=== PATIENT | male | born 1980 | race Asian ===

== ENCOUNTER 2017-01-18 09:29 | Inpatient (IN) | payer OTHER ==
[~2017-01-18] VITALS: Ht 167.6 cm; Wt 65.9 kg
[~2017-01-18 09:29] MED LIST: APIX2.5T PO; ASPI-1093 PO; ATOR10TA84 PO; CARV25 PO; FERR-89 PO; FURO40 PO; HYDR50 PO; LABE100 PO; NIFE90TA38 PO; OMEG100019 PO
[2017-01-18] MEDS ORDERED: KDUR20 PO (09:37)
[2017-01-18] MEDS ORDERED: BUME1TAB30 PO (09:37)
[2017-01-18] MEDS ORDERED: LABETALOL HCL 5 MG/ML 20 ML VIAL IVP ONE (10:00)
[2017-01-18 10:27] LABS: ANION GAP 9 mmol/L (8-16); BASOPHILS # (AUTO) 0.02 K/uL (0.00-0.20); BASOPHILS % (AUTO) 0.5 % (0.0-2.0); CALCIUM, TOTAL 7.9 mg/dL (8.8-10.5); CARBON DIOXIDE 28 mmol/L (22-29); CHLORIDE 104 mmol/L (98-107); CREATININE 1.55 mg/dL (0.60-1.30); EOSINOPHILS # (AUTO) 0.04 K/uL (0.00-0.70); EOSINOPHILS % (AUTO) 1.17 % (1.0-6.0); GLOMERULAR FILTR. RATE CALC 52 mL/min (>60); HEMATOCRIT 45.3 % (41-53); HEMOGLOBIN 14.5 g/dL (13.5-17.5); LYMPHOCYTES # (AUTO) 0.9 K/uL (1.0-4.8); LYMPHOCYTES % (AUTO) 26.9 % (22.0-44.0); MEAN CORPUSCULAR HEMOGLOBIN 23.2 pg (26.0-34.0); MEAN CORPUSCULAR HGB CONC 31.9 G/dL (31.0-37.0); MEAN CORPUSCULAR VOLUME 73 fL (80-100); MONOCYTES # (AUTO) 0.5 K/uL (0.1-1.0); MONOCYTES % (AUTO) 13.4 % (2.0-9.0); NEUTROPHILS % (AUTO) 58.1 % (40.0-70.0); PLATELET COUNT (AUTO) 214 K/uL (150-450); POTASSIUM 3.4 mmol/L (3.5-5.1); RED BLOOD CELL COUNT(AUTO) 6.24 MIL/uL (4.50-5.90); RED CELL DISTRIBUTION WIDTH 21.2 % (11.5-14.5); SODIUM SERUM 141 mmol/L (136-145); UREA NITROGEN, BLOOD 16 mg/dL (7-18); WHITE BLOOD COUNT (AUTO) 3.4 K/uL (4.5-11.0)
[2017-01-18 10:47] LABS: B-TYPE NATRIURETIC PEPTIDE 2000 pg/mL (0-100)
[2017-01-18 10:53] LABS: ALANINE AMINOTRANSFERASE 27 U/L (12-78); ALBUMIN 2.6 g/dL (3.4-5.0); ASPARTATE AMINOTRANSFERASE 34 U/L (15-37); BILIRUBIN,TOTAL 0.6 mg/dL (0.1-1.0); CREATINE KINASE MB 3.7 ng/mL (0-5); CREATINE KINASE, TOTAL 166 U/L (39-308); TOTAL PROTEIN, SERUM 6.7 g/dL (6.4-8.2)
[2017-01-18] MEDS: NITROPRUSSIDE SODIUM 50 MG in DEXTROSE 5%-WATER 248 ML IV PRN (11:03)
[2017-01-18 11:05] LABS: RBC MORPHOLOGY COMMENT ABNORMAL RBC MORPH
[2017-01-18] MEDS ORDERED: ACETAMINOPHEN 325 MG TABLET PO PRN (11:30)
[2017-01-18] MEDS ORDERED: ZOLPIDEM TARTRATE 10 MG TABLET PO PRN (11:30)
[2017-01-18] MEDS ORDERED: FUROSEMIDE 40 MG/4 ML VIAL IVP ONE (11:30)
[2017-01-18 13:40] LABS: APPEARANCE,URINE CLOUDY (CLEAR); GLUCOSE, URINE (UA) NEGATIVE (NEGATIVE); KETONES,URINE NEGATIVE (NEGATIVE); LEUKOCYTE ESTERASE ,URINE NEGATIVE (NEGATIVE); OCCULT BLOOD,URINE NEGATIVE (NEGATIVE); PROTEIN,URINE SEE CONFIRM (NEGATIVE)
[2017-01-18 13:50] LABS: ADD UA MICROSCOPIC YES
[2017-01-18 13:51] LABS: SULFOSALICYLIC ACID,URINE 2+ (Negative)
[2017-01-18] MEDS: APIXABAN 2.5 MG TABLET PO SCH ×2 (13:51→20:34)
[2017-01-18 13:52] LABS: RBC,URINE None Seen /HPF (0-2); SQUAMOUS EPITHELIAL CELL,UR Few /LPF (None Seen); WBC,URINE None Seen /HPF (0-5)
[2017-01-18] MEDS: NIFEdipine 90 MG ER TABLET PO SCH (14:35)
[2017-01-18] MEDS: HydrALAZINE HCL 50 MG TABLET PO SCH ×4 (14:39→21:32)
[2017-01-18] MEDS: LABETALOL HCL 100 MG TABLET PO SCH ×2 (15:48→20:34)
[2017-01-18] MEDS: FERROUS SULFATE 325 MG EC TABLET PO SCH (16:37)
[2017-01-18] MEDS: HEPARIN SODIUM,PORCINE 5,000 UNITS/ML VIAL SQ SCH (16:38)
[2017-01-18 21:20] VITALS: BP 172/97
[2017-01-19] VITALS: BP 134/75
[2017-01-19] MEDS ORDERED: -PHARMACY VACCINE NOTE- MISC ONE ×2 (00:15)
[2017-01-19] MEDS ORDERED: INFLUENZA VIRUS VACCINE QVS 2016-17 (3YR+)/PF 60 MCG/0.5 ML SYRINGE IM ONE (00:15)
[2017-01-19] MEDS: HEPARIN SODIUM,PORCINE 5,000 UNITS/ML VIAL SQ SCH ×4 (01:01→23:49)
[2017-01-19] MEDS: NITROPRUSSIDE SODIUM 50 MG in DEXTROSE 5%-WATER 248 ML IV PRN ×2 (01:03→10:24)
[2017-01-19 04:00] VITALS: BP 171/89
[2017-01-19 05:36] LABS: HEMATOCRIT 45.1 % (41-53); HEMOGLOBIN 14.5 g/dL (13.5-17.5); MEAN CORPUSCULAR HEMOGLOBIN 23.3 pg (26.0-34.0); MEAN CORPUSCULAR VOLUME 73 fL (80-100); PLATELET COUNT (AUTO) 222 K/uL (150-450); RED CELL DISTRIBUTION WIDTH 21.6 % (11.5-14.5)
[2017-01-19 05:50] LABS: ALBUMIN 2.6 g/dL (3.4-5.0); BILIRUBIN,TOTAL 0.5 mg/dL (0.1-1.0); CALCIUM, TOTAL 8.2 mg/dL (8.8-10.5); CREATININE 1.69 mg/dL (0.60-1.30); POTASSIUM 3.4 mmol/L (3.5-5.1); TOTAL PROTEIN, SERUM 6.5 g/dL (6.4-8.2)
[2017-01-19 08:00] VITALS: BP 170/97
[2017-01-19] MEDS: NIFEdipine 90 MG ER TABLET PO SCH (10:25)
[2017-01-19] MEDS: HydrALAZINE HCL 50 MG TABLET PO SCH ×4 (10:25→21:07)
[2017-01-19] MEDS: PANTOPRAZOLE SODIUM 40 MG DR TABLET PO SCH (10:25)
[2017-01-19] MEDS: FERROUS SULFATE 325 MG EC TABLET PO SCH ×2 (10:25→17:40)
[2017-01-19] MEDS: APIXABAN 2.5 MG TABLET PO SCH ×2 (10:26→21:06)
[2017-01-19] MEDS: ATORVASTATIN CALCIUM 10 MG TABLET PO SCH (10:26)
[2017-01-19] MEDS: POTASSIUM CHLORIDE 20 MEQ ER TABLET PO SCH (10:26)
[2017-01-19] MEDS: LABETALOL HCL 100 MG TABLET PO SCH ×3 (10:27→21:06)
[2017-01-19 10:44] LABS: BAND NEUTROPHILS % (MANUAL) 12 % (1-5); LYMPHOCYTES % (MANUAL) 37 % (22-44); TOTAL CELLS COUNTED 100
[2017-01-19 10:45] LABS: RBC MORPHOLOGY COMMENT ABNORMAL RBC MORPH
[2017-01-19 12:00] VITALS: BP 137/96
[2017-01-19] MEDS: BUMETANIDE 0.25 MG/ML 10 ML VIAL IVP SCH ×2 (12:26→21:06)
[2017-01-19] MEDS: HydrALAZINE HCL 20 MG/ML VIAL IVP PRN ×3 (14:00→23:49)
[2017-01-19 15:38] VITALS: BP 193/110
[2017-01-19] MEDS: OxyCODONE HCL/ACETAMINOPHEN 5-325 MG TABLET PO PRN (15:38)
[2017-01-19 16:00] VITALS: BP 186/115
[2017-01-20] VITALS: BP 153/88
[2017-01-20] MEDS: HydrALAZINE HCL 20 MG/ML VIAL IVP PRN ×2 (03:48→11:59)
[2017-01-20 04:00] VITALS: BP 198/119
[2017-01-20 05:22] LABS: HEMATOCRIT 46.5 % (41-53); MEAN CORPUSCULAR HEMOGLOBIN 23.2 pg (26.0-34.0); MEAN CORPUSCULAR HGB CONC 32.2 G/dL (31.0-37.0); MEAN CORPUSCULAR VOLUME 72 fL (80-100); PLATELET COUNT (AUTO) 222 K/uL (150-450); RED BLOOD CELL COUNT(AUTO) 6.45 MIL/uL (4.50-5.90); RED CELL DISTRIBUTION WIDTH 21.9 % (11.5-14.5); WHITE BLOOD COUNT (AUTO) 4.2 K/uL (4.5-11.0)
[2017-01-20 05:35] LABS: ALBUMIN 2.8 g/dL (3.4-5.0); BILIRUBIN,TOTAL 0.5 mg/dL (0.1-1.0); CALCIUM, TOTAL 8.7 mg/dL (8.8-10.5); CREATININE 1.54 mg/dL (0.60-1.30); POTASSIUM 3.4 mmol/L (3.5-5.1); TOTAL PROTEIN, SERUM 6.8 g/dL (6.4-8.2)
[2017-01-20] MEDS: NITROPRUSSIDE SODIUM 50 MG in DEXTROSE 5%-WATER 248 ML IV PRN (05:45)
[2017-01-20] MEDS ORDERED: POTASSIUM CHL 10 MEQ/WATER 50 ML IV PRN (06:00)
[2017-01-20] MEDS ORDERED: POTASSIUM CHLORIDE 20 MEQ ER TABLET PO PRN (06:00)
[2017-01-20] MEDS: OxyCODONE HCL/ACETAMINOPHEN 5-325 MG TABLET PO PRN (07:01)
[2017-01-20 07:35] LABS: BAND NEUTROPHILS % (MANUAL) 17 % (1-5); LYMPHOCYTES % (MANUAL) 21 % (22-44); RBC MORPHOLOGY COMMENT ABNORMAL RBC MORPH; TOTAL CELLS COUNTED 100
[2017-01-20 08:00] VITALS: BP 152/94
[2017-01-20] MEDS: NIFEdipine 90 MG ER TABLET PO SCH (08:40)
[2017-01-20] MEDS: HEPARIN SODIUM,PORCINE 5,000 UNITS/ML VIAL SQ SCH ×2 (08:40→16:53)
[2017-01-20] MEDS: FERROUS SULFATE 325 MG EC TABLET PO SCH ×2 (08:40→16:53)
[2017-01-20] MEDS: HydrALAZINE HCL 50 MG TABLET PO SCH ×4 (08:40→22:01)
[2017-01-20] MEDS: ATORVASTATIN CALCIUM 10 MG TABLET PO SCH (08:40)
[2017-01-20] MEDS: APIXABAN 2.5 MG TABLET PO SCH ×2 (08:40→22:01)
[2017-01-20] MEDS: LABETALOL HCL 100 MG TABLET PO SCH ×3 (08:40→22:01)
[2017-01-20] MEDS: BUMETANIDE 0.25 MG/ML 10 ML VIAL IVP SCH ×2 (08:41→22:43)
[2017-01-20] MEDS: POTASSIUM CHLORIDE 20 MEQ ER TABLET PO SCH (08:41)
[2017-01-20] MEDS: PANTOPRAZOLE SODIUM 40 MG DR TABLET PO SCH (11:58)
[2017-01-20 12:00] VITALS: BP 174/113
[2017-01-20 16:00] VITALS: BP 165/92
[2017-01-20 22:00] VITALS: BP 162/103
[2017-01-20] MEDS: DOCUSATE SODIUM 100 MG CAPSULE PO SCH (22:01)
[2017-01-21] VITALS (7 sets, daily range): BP systolic 157–199; BP diastolic 100–113
[2017-01-21] MEDS: HEPARIN SODIUM,PORCINE 5,000 UNITS/ML VIAL SQ SCH ×3 (00:09→16:17)
[2017-01-21] MEDS: HydrALAZINE HCL 20 MG/ML VIAL IVP PRN ×2 (03:31→11:27)
[2017-01-21 07:04] LABS: EOSINOPHILS % (AUTO) 2.27 % (1.0-6.0); HEMOGLOBIN 14.7 g/dL (13.5-17.5); LYMPHOCYTES # (AUTO) 1.2 K/uL (1.0-4.8); LYMPHOCYTES % (AUTO) 28.2 % (22.0-44.0); MEAN CORPUSCULAR HGB CONC 31.3 G/dL (31.0-37.0); MEAN CORPUSCULAR VOLUME 73 fL (80-100); MONOCYTES # (AUTO) 0.4 K/uL (0.1-1.0); MONOCYTES % (AUTO) 10.2 % (2.0-9.0); NEUTROPHILS # (AUTO) 2.5 K/uL (1.8-7.7); NEUTROPHILS % (AUTO) 59.3 % (40.0-70.0); PLATELET COUNT (AUTO) 234 K/uL (150-450); RED CELL DISTRIBUTION WIDTH 21.7 % (11.5-14.5); WHITE BLOOD COUNT (AUTO) 4.2 K/uL (4.5-11.0)
[2017-01-21 07:50] LABS: ALBUMIN 2.8 g/dL (3.4-5.0); BILIRUBIN,TOTAL 0.6 mg/dL (0.1-1.0); CALCIUM, TOTAL 8.6 mg/dL (8.8-10.5); CREATININE 1.43 mg/dL (0.60-1.30); POTASSIUM 3.8 mmol/L (3.5-5.1); TOTAL PROTEIN, SERUM 6.8 g/dL (6.4-8.2)
[2017-01-21] MEDS: LABETALOL HCL 200 MG TABLET PO SCH ×3 (08:12→20:59)
[2017-01-21] MEDS: ATORVASTATIN CALCIUM 10 MG TABLET PO SCH (08:13)
[2017-01-21] MEDS: FERROUS SULFATE 325 MG EC TABLET PO SCH ×2 (08:14→18:00)
[2017-01-21] MEDS: APIXABAN 2.5 MG TABLET PO SCH ×2 (08:14→20:59)
[2017-01-21] MEDS: NIFEdipine 90 MG ER TABLET PO SCH (08:17)
[2017-01-21] MEDS: BUMETANIDE 0.25 MG/ML 10 ML VIAL IVP SCH ×2 (08:17→20:58)
[2017-01-21] MEDS: POTASSIUM CHLORIDE 20 MEQ ER TABLET PO SCH (08:18)
[2017-01-21] MEDS: DOCUSATE SODIUM 100 MG CAPSULE PO SCH ×2 (08:18→20:59)
[2017-01-21] MEDS: PANTOPRAZOLE SODIUM 40 MG DR TABLET PO SCH (08:19)
[2017-01-21] MEDS: HydrALAZINE HCL 50 MG TABLET PO SCH ×4 (08:50→20:59)
[2017-01-22] VITALS: BP 157/105
[2017-01-22] MEDS: HEPARIN SODIUM,PORCINE 5,000 UNITS/ML VIAL SQ SCH ×2 (00:20→08:18)
[2017-01-22 04:21] VITALS: BP 162/109
[2017-01-22 07:24] VITALS: BP 174/130
[2017-01-22 07:41] LABS: BASOPHILS # (AUTO) 0.03 K/uL (0.00-0.20); BASOPHILS % (AUTO) 0.6 % (0.0-2.0); EOSINOPHILS # (AUTO) 0.15 K/uL (0.00-0.70); EOSINOPHILS % (AUTO) 3.35 % (1.0-6.0); HEMATOCRIT 46.2 % (41-53); HEMOGLOBIN 14.3 g/dL (13.5-17.5); LYMPHOCYTES # (AUTO) 1.2 K/uL (1.0-4.8); LYMPHOCYTES % (AUTO) 26.5 % (22.0-44.0); MEAN CORPUSCULAR HEMOGLOBIN 22.6 pg (26.0-34.0); MEAN CORPUSCULAR VOLUME 73 fL (80-100); MONOCYTES # (AUTO) 0.4 K/uL (0.1-1.0); NEUTROPHILS # (AUTO) 2.7 K/uL (1.8-7.7); NEUTROPHILS % (AUTO) 60.6 % (40.0-70.0); PLATELET COUNT (AUTO) 238 K/uL (150-450); RED BLOOD CELL COUNT(AUTO) 6.33 MIL/uL (4.50-5.90); RED CELL DISTRIBUTION WIDTH 21.5 % (11.5-14.5); WHITE BLOOD COUNT (AUTO) 4.4 K/uL (4.5-11.0)
[2017-01-22 07:52] LABS: RBC MORPHOLOGY COMMENT ABNORMAL RBC MORPH
[2017-01-22 08:01] LABS: ALBUMIN 2.8 g/dL (3.4-5.0); BILIRUBIN,TOTAL 0.6 mg/dL (0.1-1.0); CALCIUM, TOTAL 8.6 mg/dL (8.8-10.5); CREATININE 1.44 mg/dL (0.60-1.30); MAGNESIUM 2.2 mg/dL (1.80-2.40); POTASSIUM 3.7 mmol/L (3.5-5.1); TOTAL PROTEIN, SERUM 6.7 g/dL (6.4-8.2)
[2017-01-22] MEDS: ATORVASTATIN CALCIUM 10 MG TABLET PO SCH (08:18)
[2017-01-22] MEDS: POTASSIUM CHLORIDE 20 MEQ ER TABLET PO SCH (08:18)
[2017-01-22] MEDS: BUMETANIDE 0.25 MG/ML 10 ML VIAL IVP SCH (08:18)
[2017-01-22] MEDS: HydrALAZINE HCL 50 MG TABLET PO SCH ×2 (08:18→12:05)
[2017-01-22] MEDS: NIFEdipine 90 MG ER TABLET PO SCH (08:18)
[2017-01-22] MEDS: LABETALOL HCL 200 MG TABLET PO SCH (08:18)
[2017-01-22] MEDS: DOCUSATE SODIUM 100 MG CAPSULE PO SCH (08:18)
[2017-01-22] MEDS: FERROUS SULFATE 325 MG EC TABLET PO SCH (08:18)
[2017-01-22] MEDS: PANTOPRAZOLE SODIUM 40 MG DR TABLET PO SCH (08:18)
[2017-01-22] MEDS: APIXABAN 2.5 MG TABLET PO SCH (08:19)
[2017-01-22 11:23] VITALS: BP 172/123
[2017-01-22] MEDS ORDERED: LABETALOL HCL 200 MG TABLET PO ONE (13:00)
[2017-01-22 14:22] VITALS: BP 130/95
[2017-01-22 15:17] VITALS: BP 139/87
[2017-01-22] MEDS ORDERED: LABETALOL HCL 200 MG TABLET PO SCH (16:00)
== END 2017-01-22 16:08 | disposition home or self-care (01) | DRG 194 ==
LOC: EMS 09:36 → ICUN 19:56 → 5N 01-20 17:55
PROVIDERS: ADMIT Hospitalist; ATTEND Hospitalist
DX: I11.0 Hypertensive heart disease with heart failure (principal); E43 Unspecified severe protein-calorie malnutrition; G93.41 Metabolic encephalopathy; I48.92 Unspecified atrial flutter; I42.8 Other cardiomyopathies; Z79.01 Long term (current) use of anticoagulants; I48.91 Unspecified atrial fibrillation; I20.0 Unstable angina; I50.23 Acute on chronic systolic (congestive) heart failure; E87.1 Hypo-osmolality and hyponatremia; E87.6 Hypokalemia; N28.9 Disorder of kidney and ureter, unspecified; I35.1 Nonrheumatic aortic (valve) insufficiency; Z68.23 Body mass index [BMI] 23.0-23.9, adult; Z79.899 Other long term (current) drug therapy; Z91.19 Patient's noncompliance with other medical treatment and regimen; Z71.51 Drug abuse counseling and surveillance of drug abuser; Z28.21 Immunization not carried out because of patient refusal
CPT/HCPCS: 76700; 83735; 84132; 87081; 90471; 93005; 93306; 96374; 96375; 99291; J0360; J1644; J1940; J3490; J7060

== ENCOUNTER 2017-10-03 18:17 | Inpatient (IN) | payer OTHER ==
[~2017-10-03] VITALS: Ht 167.6 cm; Wt 75.1 kg
[~2017-10-03 18:17] MED LIST changes: -ASPI-1093 PO; +BUME1TAB17 PO; -CARV25 PO; -FURO40 PO; +HYDR-2924 PO; -HYDR50 PO; +KDUR20 PO; +OMEG-135 PO; -OMEG100019 PO
[2017-10-03] MEDS ORDERED: KDUR20 PO (18:30)
[2017-10-03] MEDS ORDERED: ATOR10TA84 PO (18:30)
[2017-10-03] MEDS ORDERED: APIX2.5T PO (18:30)
[2017-10-03] MEDS ORDERED: BUME1TAB17 PO (18:30)
[2017-10-03] MEDS ORDERED: HYDR-2924 PO (18:30)
[2017-10-03] MEDS ORDERED: FERR-89 PO (18:30)
[2017-10-03] MEDS ORDERED: LABE100 PO (18:30)
[2017-10-03] MEDS ORDERED: NIFE90TA38 PO (18:30)
[2017-10-03] MEDS ORDERED: OMEG-135 PO (18:30)
[2017-10-03] MEDS ORDERED: LORazepam 2 MG TABLET PO ONE (19:15)
[2017-10-03] MEDS ORDERED: CloNIDine HCL 0.1 MG TABLET PO ONE (19:15)
[2017-10-03] MEDS ORDERED: MORPHINE SULFATE 4 MG/ML SYRINGE IVP ONE (19:30)
[2017-10-03 19:37] LABS: BASOPHILS % (AUTO) 0.4 % (0.0-2.0); EOSINOPHILS % (AUTO) 5.6 % (1.0-6.0); HEMATOCRIT 40.7 % (41-53); HEMOGLOBIN 13.3 g/dL (13.5-17.5); LYMPHOCYTES # (AUTO) 0.8 K/uL (1.0-4.8); MEAN CORPUSCULAR HEMOGLOBIN 25.4 pg (26.0-34.0); MEAN CORPUSCULAR HGB CONC 32.7 G/dL (31.0-37.0); MEAN CORPUSCULAR VOLUME 78 fL (80-100); MONOCYTES # (AUTO) 0.9 K/uL (0.1-1.0); MONOCYTES % (AUTO) 11.2 % (2.0-9.0); NEUTROPHILS # (AUTO) 5.5 K/uL (1.8-7.7); NEUTROPHILS % (AUTO) 71.8 % (40.0-70.0); PLATELET COUNT (AUTO) 278 K/uL (150-450); RED BLOOD CELL COUNT(AUTO) 5.24 MIL/uL (4.50-5.90); RED CELL DISTRIBUTION WIDTH 16.1 % (11.5-14.5); WHITE BLOOD COUNT (AUTO) 7.6 K/uL (4.5-11.0)
[2017-10-03 19:39] LABS: APPEARANCE,URINE CLOUDY (CLEAR); GLUCOSE, URINE (UA) NEGATIVE (NEGATIVE); KETONES,URINE NEGATIVE (NEGATIVE); LEUKOCYTE ESTERASE ,URINE NEGATIVE (NEGATIVE); OCCULT BLOOD,URINE MODERATE (NEGATIVE); PH,URINE 5.5 (5.0-8.0); PROTEIN,URINE SEE CONFIRM (NEGATIVE)
[2017-10-03 19:40] LABS: ADD UA MICROSCOPIC YES
[2017-10-03 19:46] LABS: SULFOSALICYLIC ACID,URINE 4+ (Negative)
[2017-10-03 19:50] LABS: WBC,URINE 0-2 /HPF (0-5)
[2017-10-03 19:52] LABS: ANION GAP 4 mmol/L (8-16); CALCIUM, TOTAL 8.2 mg/dL (8.8-10.5); CARBON DIOXIDE 30 mmol/L (22-29); CHLORIDE 99 mmol/L (98-107); CREATININE 2.13 mg/dL (0.60-1.30); GLOMERULAR FILTR. RATE CALC 36 mL/min (>60); POTASSIUM 3.2 mmol/L (3.5-5.1); SODIUM SERUM 133 mmol/L (136-145); UREA NITROGEN, BLOOD 36 mg/dL (7-18)
[2017-10-03 19:52] LABS: AMORPHOUS SEDIMENT,UR Few /LPF (None Seen); COARSE GRANULAR CASTS,URINE 0-2 /LPF (None Seen); FINE GRANULAR CASTS,URINE 0-2 /LPF (None Seen); SQUAMOUS EPITHELIAL CELL,UR Few /LPF (None Seen)
[2017-10-03 19:53] LABS: INR 1.1 (0.9-1.1); PROTHROMBIN TIME 11.8 SEC (9.4-11.6)
[2017-10-03] MEDS ORDERED: LABETALOL HCL 5 MG/ML 20 ML VIAL IVP ONE ×2 (20:00→23:30)
[2017-10-03] MEDS ORDERED: NITROGLYCERIN 2% (1 GM=INCH) PACKET TP ONE (20:00)
[2017-10-03] MEDS ORDERED: ASPIRIN 81 MG CHEWABLE TABLET PO ONE (20:00)
[2017-10-03] MEDS ORDERED: POTASSIUM CHLORIDE 20 MEQ ER TABLET PO ONE (20:00)
[2017-10-03 20:02] LABS: B-TYPE NATRIURETIC PEPTIDE 2020 pg/mL (0-100)
[2017-10-03 20:03] LABS: RBC MORPHOLOGY COMMENT ABNORMAL RBC MORPH
[2017-10-03 20:17] LABS: ALANINE AMINOTRANSFERASE 29 U/L (12-78); ALBUMIN 2.8 g/dL (3.4-5.0); ASPARTATE AMINOTRANSFERASE 26 U/L (15-37); BILIRUBIN,TOTAL 0.5 mg/dL (0.1-1.0); CREATINE KINASE MB 4.8 ng/mL (0-5); CREATINE KINASE, TOTAL 281 U/L (39-308); TOTAL PROTEIN, SERUM 6.3 g/dL (6.4-8.2)
[2017-10-03] MEDS ORDERED: ACETAMINOPHEN 325 MG TABLET PO PRN ×2 (20:30→22:00)
[2017-10-03] MEDS ORDERED: ONDANSETRON HCL 4 MG/2 ML VIAL IVP PRN (20:30)
[2017-10-03] MEDS ORDERED: 0.9% SODIUM CHLORIDE 10 ML SYRINGE IVP PRN (20:30)
[2017-10-03] MEDS ORDERED: BISACODYL 10 MG RECTAL RECTAL SUPPOSITORY PR PRN (22:00)
[2017-10-03] MEDS ORDERED: HydrALAZINE HCL 20 MG/ML VIAL IVP ONE (22:15)
[2017-10-03] MEDS: BUMETANIDE 0.25 MG/ML 4 ML VIAL IVP SCH (22:18)
[2017-10-04] VITALS (7 sets, daily range): BP systolic 111–197; BP diastolic 72–141
[2017-10-04] MEDS ORDERED: LABETALOL HCL 5 MG/ML 20 ML VIAL IVP ONE
[2017-10-04] MEDS ORDERED: NITROGLYCERIN 50 MG/D5% WATER 250 ML IV PRN (00:44)
[2017-10-04] MEDS: CloNIDine HCL 0.1 MG TABLET PO PRN ×2 (03:13→06:16)
[2017-10-04 05:11] LABS: BASOPHILS # (AUTO) 0.07 K/uL (0.00-0.20); BASOPHILS % (AUTO) 0.9 % (0.0-2.0); EOSINOPHILS # (AUTO) 0.39 K/uL (0.00-0.70); EOSINOPHILS % (AUTO) 5.08 % (1.0-6.0); HEMATOCRIT 40.5 % (41-53); HEMOGLOBIN 12.9 g/dL (13.5-17.5); LYMPHOCYTES # (AUTO) 0.9 K/uL (1.0-4.8); LYMPHOCYTES % (AUTO) 11.4 % (22.0-44.0); MEAN CORPUSCULAR HEMOGLOBIN 25.2 pg (26.0-34.0); MEAN CORPUSCULAR HGB CONC 31.9 G/dL (31.0-37.0); MEAN CORPUSCULAR VOLUME 79 fL (80-100); MONOCYTES % (AUTO) 12.3 % (2.0-9.0); NEUTROPHILS # (AUTO) 5.5 K/uL (1.8-7.7); NEUTROPHILS % (AUTO) 70.4 % (40.0-70.0); PLATELET COUNT (AUTO) 274 K/uL (150-450); RED BLOOD CELL COUNT(AUTO) 5.13 MIL/uL (4.50-5.90); RED CELL DISTRIBUTION WIDTH 15.6 % (11.5-14.5); WHITE BLOOD COUNT (AUTO) 7.7 K/uL (4.5-11.0)
[2017-10-04 06:05] LABS: CALCIUM, TOTAL 8.4 mg/dL (8.8-10.5); CREATININE 1.69 mg/dL (0.60-1.30); POTASSIUM 3.6 mmol/L (3.5-5.1)
[2017-10-04] MEDS ORDERED: AmLODIPine BESYLATE 10 MG TABLET PO ONE (06:30)
[2017-10-04] MEDS: OxyCODONE HCL/ACETAMINOPHEN 5-325 MG TABLET PO PRN ×4 (06:31→23:29)
[2017-10-04] MEDS ORDERED: CefTRIAXone 1 GM/DEXTROSE 50 ML IV SCH (07:30)
[2017-10-04] MEDS ORDERED: HydrALAZINE HCL 20 MG/ML VIAL IVP PRN ×2 (08:00→08:30)
[2017-10-04] MEDS ORDERED: HydrALAZINE HCL 20 MG/ML VIAL IVP SCH (08:00)
[2017-10-04] MEDS ORDERED: LABETALOL HCL 5 MG/ML 20 ML VIAL IVP SCH (08:00)
[2017-10-04] MEDS ORDERED: LABETALOL HCL 5 MG/ML 20 ML VIAL IVP PRN ×3 (08:00→21:00)
[2017-10-04] MEDS: BUMETANIDE 0.25 MG/ML 4 ML VIAL IVP SCH ×2 (08:26→20:45)
[2017-10-04] MEDS: PANTOPRAZOLE SODIUM 40 MG DR TABLET PO SCH (08:28)
[2017-10-04] MEDS: DOCUSATE SODIUM 100 MG CAPSULE PO SCH ×2 (08:28→20:45)
[2017-10-04] MEDS: AmLODIPine BESYLATE 10 MG TABLET PO SCH (08:28)
[2017-10-04] MEDS ORDERED: SODIUM CHLORIDE 0.9% 250 ML IV ONE (08:33)
[2017-10-04] MEDS: LABETALOL HCL 100 MG TABLET PO SCH ×3 (09:21→20:45)
[2017-10-04] MEDS: ASPIRIN 81 MG CHEWABLE TABLET PO SCH (20:45)
[2017-10-04] MEDS: HydrALAZINE HCL 25 MG TABLET PO SCH (23:29)
[2017-10-05] VITALS (10 sets, daily range): BP systolic 153–200; BP diastolic 86–116
[2017-10-05] MEDS: OxyCODONE HCL/ACETAMINOPHEN 5-325 MG TABLET PO PRN ×5 (04:52→22:52)
[2017-10-05 06:36] LABS: BASOPHILS % (AUTO) 0.6 % (0.0-2.0); EOSINOPHILS % (AUTO) 4.9 % (1.0-6.0); HEMATOCRIT 41.4 % (41-53); HEMOGLOBIN 13.4 g/dL (13.5-17.5); MEAN CORPUSCULAR HEMOGLOBIN 25.5 pg (26.0-34.0); MEAN CORPUSCULAR HGB CONC 32.4 G/dL (31.0-37.0); MEAN CORPUSCULAR VOLUME 79 fL (80-100); MONOCYTES # (AUTO) 0.8 K/uL (0.1-1.0); MONOCYTES % (AUTO) 11.7 % (2.0-9.0); NEUTROPHILS # (AUTO) 4.7 K/uL (1.8-7.7); NEUTROPHILS % (AUTO) 67.8 % (40.0-70.0); PLATELET COUNT (AUTO) 276 K/uL (150-450); RED BLOOD CELL COUNT(AUTO) 5.26 MIL/uL (4.50-5.90); RED CELL DISTRIBUTION WIDTH 16.2 % (11.5-14.5); WHITE BLOOD COUNT (AUTO) 6.9 K/uL (4.5-11.0)
[2017-10-05 06:46] LABS: ALBUMIN 2.5 g/dL (3.4-5.0); BILIRUBIN,TOTAL 0.7 mg/dL (0.1-1.0); CALCIUM, TOTAL 8.3 mg/dL (8.8-10.5); CREATININE 1.72 mg/dL (0.60-1.30); MAGNESIUM 1.9 mg/dL (1.80-2.40); POTASSIUM 3.9 mmol/L (3.5-5.1)
[2017-10-05] MEDS: LABETALOL HCL 100 MG TABLET PO SCH ×3 (08:17→22:51)
[2017-10-05] MEDS: HydrALAZINE HCL 25 MG TABLET PO SCH ×2 (08:17→17:58)
[2017-10-05] MEDS: DOCUSATE SODIUM 100 MG CAPSULE PO SCH ×2 (08:17→20:28)
[2017-10-05] MEDS: PANTOPRAZOLE SODIUM 40 MG DR TABLET PO SCH (08:17)
[2017-10-05] MEDS: BUMETANIDE 0.25 MG/ML 4 ML VIAL IVP SCH ×2 (08:18→20:32)
[2017-10-05] MEDS: AmLODIPine BESYLATE 10 MG TABLET PO SCH ×3 (08:18→20:29)
[2017-10-05] MEDS ORDERED: AmLODIPine BESYLATE 10 MG TABLET PO SCH (09:00)
[2017-10-05] MEDS: CloNIDine HCL 0.1 MG TABLET PO PRN (11:38)
[2017-10-05] MEDS: ASPIRIN 81 MG CHEWABLE TABLET PO SCH (20:29)
[2017-10-06 00:57] VITALS: BP 156/108
[2017-10-06] MEDS: HydrALAZINE HCL 25 MG TABLET PO SCH ×2 (00:58→07:53)
[2017-10-06 04:05] VITALS: BP 173/115
[2017-10-06] MEDS: CloNIDine HCL 0.1 MG TABLET PO PRN (04:05)
[2017-10-06] MEDS: OxyCODONE HCL/ACETAMINOPHEN 5-325 MG TABLET PO PRN ×3 (04:07→12:33)
[2017-10-06 05:54] VITALS: BP 146/83
[2017-10-06 07:45] VITALS: BP 192/120
[2017-10-06] MEDS: AmLODIPine BESYLATE 10 MG TABLET PO SCH (07:53)
[2017-10-06] MEDS: PANTOPRAZOLE SODIUM 40 MG DR TABLET PO SCH (07:53)
[2017-10-06] MEDS: DOCUSATE SODIUM 100 MG CAPSULE PO SCH ×2 (07:53→09:34)
[2017-10-06] MEDS: LABETALOL HCL 100 MG TABLET PO SCH (07:53)
[2017-10-06] MEDS: BUMETANIDE 0.25 MG/ML 4 ML VIAL IVP SCH (07:54)
[2017-10-06] MEDS ORDERED: BUMETANIDE 1 MG TABLET PO SCH (09:00)
[2017-10-06 11:46] VITALS: BP 137/102
== END 2017-10-06 14:20 | disposition home or self-care (01) | DRG 135 ==
LOC: EMS 18:18 → 5N 20:42 → ICU 20:42 → 5N 10-04 13:45
PROVIDERS: ADMIT Internal Medicine; ATTEND Internal Medicine
DX: S22.41XA Multiple fractures of ribs, right side, initial encounter for closed fracture (principal); G92 Toxic encephalopathy; I50.21 Acute systolic (congestive) heart failure; I48.92 Unspecified atrial flutter; I43 Cardiomyopathy in diseases classified elsewhere; E44.0 Moderate protein-calorie malnutrition; I48.0 Paroxysmal atrial fibrillation; I16.0 Hypertensive urgency; I13.0 Hypertensive heart and chronic kidney disease with heart failure and stage 1 through stage 4 chronic kidney disease, or unspecified chronic kidney disease; W19.XXXA Unspecified fall, initial encounter; F19.10 Other psychoactive substance abuse, uncomplicated; N18.3 Chronic kidney disease, stage 3 (moderate); F17.210 Nicotine dependence, cigarettes, uncomplicated; Z91.19 Patient's noncompliance with other medical treatment and regimen; Z82.49 Family history of ischemic heart disease and other diseases of the circulatory system; Z84.1 Family history of disorders of kidney and ureter; Z68.26 Body mass index [BMI] 26.0-26.9, adult; Y93.89 Activity, other specified; Y92.89 Other specified places as the place of occurrence of the external cause; Y99.8 Other external cause status
CPT/HCPCS: 70450; 71020; 83735; 87081; 87086; 93005; 93306; 96365; 96366; 96375; 96376; 99285; G0480; J0360; J0696; J2270; J3490; J7050

== ENCOUNTER 2017-11-15 17:16 | Inpatient (IN) | payer OTHER ==
[~2017-11-15] VITALS: Ht 167.6 cm; Wt 69.8 kg
[~2017-11-15 17:16] MED LIST changes: -FERR-89 PO; -KDUR20 PO
[2017-11-15] MEDS ORDERED: BUMETANIDE 0.25 MG/ML 4 ML VIAL IVP ONE (17:30)
[2017-11-15] MEDS ORDERED: ONDANSETRON HCL 4 MG/2 ML VIAL IVP ONE (17:30)
[2017-11-15] MEDS ORDERED: ASPIRIN 81 MG CHEWABLE TABLET PO ONE (17:30)
[2017-11-15] MEDS ORDERED: MORPHINE SULFATE 4 MG/ML SYRINGE IVP ONE (17:30)
[2017-11-15 17:36] LABS: BASOPHILS # (AUTO) 0.01 K/uL (0.00-0.20); BASOPHILS % (AUTO) 0.1 % (0.0-2.0); EOSINOPHILS # (AUTO) 0.07 K/uL (0.00-0.70); EOSINOPHILS % (AUTO) 1.04 % (1.0-6.0); HEMATOCRIT 44.6 % (41-53); HEMOGLOBIN 14.3 g/dL (13.5-17.5); LYMPHOCYTES # (AUTO) 0.6 K/uL (1.0-4.8); LYMPHOCYTES % (AUTO) 8.6 % (22.0-44.0); MEAN CORPUSCULAR HEMOGLOBIN 24.8 pg (26.0-34.0); MEAN CORPUSCULAR HGB CONC 32.1 G/dL (31.0-37.0); MEAN CORPUSCULAR VOLUME 77 fL (80-100); MONOCYTES # (AUTO) 0.4 K/uL (0.1-1.0); MONOCYTES % (AUTO) 5.6 % (2.0-9.0); NEUTROPHILS # (AUTO) 6.1 K/uL (1.8-7.7); NEUTROPHILS % (AUTO) 84.6 % (40.0-70.0); PLATELET COUNT (AUTO) 188 K/uL (150-450); RED BLOOD CELL COUNT(AUTO) 5.75 MIL/uL (4.50-5.90); RED CELL DISTRIBUTION WIDTH 16.4 % (11.5-14.5); WHITE BLOOD COUNT (AUTO) 7.2 K/uL (4.5-11.0)
[2017-11-15 17:47] LABS: ANION GAP 8 mmol/L (8-16); CALCIUM, TOTAL 8.4 mg/dL (8.8-10.5); CARBON DIOXIDE 27 mmol/L (22-29); CHLORIDE 100 mmol/L (98-107); CREATININE 1.89 mg/dL (0.60-1.30); GLOMERULAR FILTR. RATE CALC 41 mL/min (>60); POTASSIUM 3.8 mmol/L (3.5-5.1); SODIUM SERUM 135 mmol/L (136-145); UREA NITROGEN, BLOOD 30 mg/dL (7-18)
[2017-11-15 18:00] LABS: B-TYPE NATRIURETIC PEPTIDE 2980 pg/mL (0-100)
[2017-11-15 18:12] LABS: ALANINE AMINOTRANSFERASE 21 U/L (12-78); ALBUMIN 2.8 g/dL (3.4-5.0); ASPARTATE AMINOTRANSFERASE 28 U/L (15-37); BILIRUBIN,TOTAL 0.6 mg/dL (0.1-1.0); CREATINE KINASE MB 2.7 ng/mL (0-5); CREATINE KINASE, TOTAL 387 U/L (39-308); TOTAL PROTEIN, SERUM 6.6 g/dL (6.4-8.2)
[2017-11-15 18:22] LABS: RBC MORPHOLOGY COMMENT ABNORMAL RBC MORPH
[2017-11-15] MEDS ORDERED: HydrALAZINE HCL 20 MG/ML VIAL IVP ONE ×2 (19:00→20:45)
[2017-11-15] MEDS ORDERED: 0.9% SODIUM CHLORIDE 10 ML SYRINGE IVP PRN ×2 (19:45→23:00)
[2017-11-15] MEDS ORDERED: ACETAMINOPHEN 325 MG TABLET PO PRN (19:45)
[2017-11-15] MEDS ORDERED: ONDANSETRON HCL 4 MG/2 ML VIAL IVP PRN ×2 (19:45→23:00)
[2017-11-15] MEDS ORDERED: LABETALOL HCL 5 MG/ML 20 ML VIAL IVP ONE (20:45)
[2017-11-15 22:09] VITALS: BP 163/130
[2017-11-15] MEDS: NICARDipine 20 MG/DEXT,ISO-OSM 200 ML IV PRN (22:27)
[2017-11-15] MEDS ORDERED: IPRATROPIUM BROMIDE 0.5 MG/2.5 ML NEB SOLUTION NEB PRN (23:00)
[2017-11-15] MEDS ORDERED: ALBUTEROL SULFATE 2.5 MG/0.5 ML NEB SOLUTION NEB PRN (23:00)
[2017-11-15] MEDS ORDERED: MAGNESIUM HYDROXIDE SUSPENSION 30 ML UDCUP PO PRN (23:00)
[2017-11-15] MEDS ORDERED: BISACODYL 10 MG RECTAL RECTAL SUPPOSITORY PR PRN (23:00)
[2017-11-15 23:16] LABS: ABG A-A DIFF O2 122.6 mmHg (10-20.0); ABG BASE EXCESS 0.7 mmol/L (-2.0-3.0); ABG HCO3 25.2 mmol/L (22.0-26.0); ABG OXYHEMOGLOBIN 93.4 % (94.0-100.0); ABG PCO2 38 mmHg (35-45); ABG PH 7.435 (7.350-7.450); ALLEN TEST, BLOOD GAS POSITIVE; TEMPERATURE, FAHRENHEIT, BG 98.6 FAHREN (96.0-98.6)
[2017-11-16] VITALS (12 sets, daily range): BP systolic 144–189; BP diastolic 88–125
[2017-11-16] MEDS: NICARDipine 20 MG/DEXT,ISO-OSM 200 ML IV PRN (04:37)
[2017-11-16 06:15] LABS: BILIRUBIN,TOTAL 0.7 mg/dL (0.1-1.0); CALCIUM, TOTAL 8.5 mg/dL (8.8-10.5); CHOL/HDL RATIO 2.4 (4.2-7.3); CREATININE 1.73 mg/dL (0.60-1.30); MAGNESIUM 1.7 mg/dL (1.80-2.40); PHOSPHORUS 3.2 mg/dL (2.5-4.9); POTASSIUM 3.5 mmol/L (3.5-5.1); TOTAL PROTEIN, SERUM 7.3 g/dL (6.4-8.2)
[2017-11-16 06:21] LABS: EOSINOPHILS % (AUTO) 0.2 % (1.0-6.0); HEMATOCRIT 46.9 % (41-53); HEMOGLOBIN 15.2 g/dL (13.5-17.5); LYMPHOCYTES # (AUTO) 0.6 K/uL (1.0-4.8); LYMPHOCYTES % (AUTO) 7.3 % (22.0-44.0); MEAN CORPUSCULAR HEMOGLOBIN 25.4 pg (26.0-34.0); MEAN CORPUSCULAR HGB CONC 32.4 G/dL (31.0-37.0); MEAN CORPUSCULAR VOLUME 78 fL (80-100); MONOCYTES # (AUTO) 0.8 K/uL (0.1-1.0); MONOCYTES % (AUTO) 9.5 % (2.0-9.0); NEUTROPHILS # (AUTO) 6.7 K/uL (1.8-7.7); PLATELET COUNT (AUTO) 178 K/uL (150-450); RED BLOOD CELL COUNT(AUTO) 5.98 MIL/uL (4.50-5.90); RED CELL DISTRIBUTION WIDTH 15.5 % (11.5-14.5)
[2017-11-16] MEDS: ACETAMINOPHEN 325 MG TABLET PO PRN ×3 (06:46→19:59)
[2017-11-16] MEDS ORDERED: INFLUENZA VIRUS VACCINE QVS 2017-18 (3YR+)/PF 60 MCG/0.5 ML SYRINGE IM ONE (07:30)
[2017-11-16] MEDS ORDERED: -PHARMACY VACCINE NOTE- MISC ONE ×2 (07:30)
[2017-11-16] MEDS: BUMETANIDE 0.25 MG/ML 4 ML VIAL IVP SCH ×2 (08:31→20:35)
[2017-11-16] MEDS: APIXABAN 2.5 MG TABLET PO SCH ×2 (08:31→20:36)
[2017-11-16] MEDS: ATORVASTATIN CALCIUM 10 MG TABLET PO SCH (08:31)
[2017-11-16] MEDS: PANTOPRAZOLE SODIUM 40 MG DR TABLET PO SCH (08:31)
[2017-11-16] MEDS: LABETALOL HCL 100 MG TABLET PO SCH ×3 (08:31→20:36)
[2017-11-16] MEDS: HydrALAZINE HCL 25 MG TABLET PO SCH ×4 (08:31→20:35)
[2017-11-16] MEDS: OMEGA-3/DHA/EPA/FISH OIL 1,000 MG CAPSULE PO SCH ×3 (08:31→20:36)
[2017-11-16] MEDS: DOCUSATE SODIUM 100 MG CAPSULE PO SCH ×2 (08:32→20:36)
[2017-11-16] MEDS: NIFEdipine 90 MG ER TABLET PO SCH (11:27)
[2017-11-16] MEDS ORDERED: HYDROCODONE/ACETAMINOPHEN 5-325 MG TABLET PO PRN (20:15)
[2017-11-16] MEDS: MORPHINE SULFATE 2 MG/ML SYRINGE IVP PRN (20:36)
[2017-11-16] MEDS: GuaiFENesin/CODEINE [SUGAR FREE] 200-20MG/10 ML SYRUP UDCUP PO PRN (21:18)
[2017-11-17] VITALS (11 sets, daily range): BP systolic 133–188; BP diastolic 89–119
[2017-11-17] MEDS: MORPHINE SULFATE 2 MG/ML SYRINGE IVP PRN ×5 (01:48→21:33)
[2017-11-17] MEDS: GuaiFENesin/CODEINE [SUGAR FREE] 200-20MG/10 ML SYRUP UDCUP PO PRN ×3 (03:57→17:49)
[2017-11-17 05:40] LABS: HEMATOCRIT 44.1 % (41-53); HEMOGLOBIN 14.3 g/dL (13.5-17.5); LYMPHOCYTES % (AUTO) 14.3 % (22.0-44.0); MEAN CORPUSCULAR HEMOGLOBIN 25.6 pg (26.0-34.0); MEAN CORPUSCULAR HGB CONC 32.4 G/dL (31.0-37.0); MEAN CORPUSCULAR VOLUME 79 fL (80-100); MONOCYTES # (AUTO) 0.5 K/uL (0.1-1.0); MONOCYTES % (AUTO) 7.4 % (2.0-9.0); NEUTROPHILS # (AUTO) 5.4 K/uL (1.8-7.7); NEUTROPHILS % (AUTO) 77.3 % (40.0-70.0); PLATELET COUNT (AUTO) 180 K/uL (150-450); RED CELL DISTRIBUTION WIDTH 15.9 % (11.5-14.5)
[2017-11-17 05:48] LABS: CALCIUM, TOTAL 8.5 mg/dL (8.8-10.5); CREATININE 1.97 mg/dL (0.60-1.30); POTASSIUM 3.9 mmol/L (3.5-5.1)
[2017-11-17] MEDS: HydrALAZINE HCL 25 MG TABLET PO SCH ×4 (05:53→21:32)
[2017-11-17] MEDS: DOCUSATE SODIUM 100 MG CAPSULE PO SCH ×2 (07:58→21:32)
[2017-11-17] MEDS: NIFEdipine 90 MG ER TABLET PO SCH (07:58)
[2017-11-17] MEDS: PANTOPRAZOLE SODIUM 40 MG DR TABLET PO SCH (07:58)
[2017-11-17] MEDS: OMEGA-3/DHA/EPA/FISH OIL 1,000 MG CAPSULE PO SCH ×3 (07:58→21:32)
[2017-11-17] MEDS: ATORVASTATIN CALCIUM 10 MG TABLET PO SCH (07:58)
[2017-11-17] MEDS: APIXABAN 2.5 MG TABLET PO SCH ×2 (07:59→21:32)
[2017-11-17] MEDS: LABETALOL HCL 100 MG TABLET PO SCH (07:59)
[2017-11-17] MEDS: BUMETANIDE 0.25 MG/ML 4 ML VIAL IVP SCH ×2 (09:31→21:31)
[2017-11-17] MEDS: LABETALOL HCL 200 MG TABLET PO SCH ×2 (16:47→21:32)
[2017-11-17] MEDS: NIFEdipine 60 MG ER TABLET PO SCH (21:32)
[2017-11-18] VITALS (7 sets, daily range): BP systolic 141–159; BP diastolic 91–114
[2017-11-18] MEDS: GuaiFENesin/CODEINE [SUGAR FREE] 200-20MG/10 ML SYRUP UDCUP PO PRN ×4 (02:41→22:46)
[2017-11-18 07:00] LABS: BASOPHILS % (AUTO) 0.2 % (0.0-2.0); EOSINOPHILS % (AUTO) 0.9 % (1.0-6.0); HEMATOCRIT 40.2 % (41-53); HEMOGLOBIN 13.1 g/dL (13.5-17.5); LYMPHOCYTES % (AUTO) 14.1 % (22.0-44.0); MEAN CORPUSCULAR HEMOGLOBIN 25.5 pg (26.0-34.0); MEAN CORPUSCULAR HGB CONC 32.7 G/dL (31.0-37.0); MEAN CORPUSCULAR VOLUME 78 fL (80-100); MONOCYTES # (AUTO) 0.7 K/uL (0.1-1.0); MONOCYTES % (AUTO) 9.5 % (2.0-9.0); NEUTROPHILS # (AUTO) 5.4 K/uL (1.8-7.7); NEUTROPHILS % (AUTO) 75.3 % (40.0-70.0); PLATELET COUNT (AUTO) 194 K/uL (150-450); RED BLOOD CELL COUNT(AUTO) 5.17 MIL/uL (4.50-5.90); RED CELL DISTRIBUTION WIDTH 15.6 % (11.5-14.5); WHITE BLOOD COUNT (AUTO) 7.2 K/uL (4.5-11.0)
[2017-11-18 07:35] LABS: ALBUMIN 2.6 g/dL (3.4-5.0); BILIRUBIN,TOTAL 0.6 mg/dL (0.1-1.0); CALCIUM, TOTAL 8.5 mg/dL (8.8-10.5); CREATININE 1.77 mg/dL (0.60-1.30); MAGNESIUM 2.1 mg/dL (1.80-2.40); POTASSIUM 3.7 mmol/L (3.5-5.1); TOTAL PROTEIN, SERUM 6.5 g/dL (6.4-8.2)
[2017-11-18] MEDS: MORPHINE SULFATE 2 MG/ML SYRINGE IVP PRN ×4 (08:45→22:41)
[2017-11-18] MEDS: PANTOPRAZOLE SODIUM 40 MG DR TABLET PO SCH (08:48)
[2017-11-18] MEDS: DOCUSATE SODIUM 100 MG CAPSULE PO SCH ×2 (08:48→21:04)
[2017-11-18] MEDS: ATORVASTATIN CALCIUM 10 MG TABLET PO SCH (08:48)
[2017-11-18] MEDS: OMEGA-3/DHA/EPA/FISH OIL 1,000 MG CAPSULE PO SCH ×3 (08:49→21:05)
[2017-11-18] MEDS: NIFEdipine 60 MG ER TABLET PO SCH ×2 (08:49→21:04)
[2017-11-18] MEDS: APIXABAN 2.5 MG TABLET PO SCH ×2 (08:49→21:03)
[2017-11-18] MEDS: LABETALOL HCL 200 MG TABLET PO SCH ×3 (08:50→21:04)
[2017-11-18] MEDS: HydrALAZINE HCL 25 MG TABLET PO SCH ×4 (09:00→21:03)
[2017-11-18 09:49] LABS: RBC MORPHOLOGY COMMENT ABNORMAL RBC MORPH
[2017-11-18] MEDS: BUMETANIDE 0.25 MG/ML 4 ML VIAL IVP SCH ×2 (10:15→21:05)
[2017-11-18] MEDS ORDERED: 0.9% SODIUM CHLORIDE 5 ML NEB SOLUTION NEB ONE (21:09)
[2017-11-19] MEDS: MORPHINE SULFATE 2 MG/ML SYRINGE IVP PRN ×4 (03:36→16:55)
[2017-11-19] MEDS: GuaiFENesin/CODEINE [SUGAR FREE] 200-20MG/10 ML SYRUP UDCUP PO PRN ×2 (04:54→13:53)
[2017-11-19 04:56] VITALS: BP 158/88
[2017-11-19 06:06] LABS: BASOPHILS # (AUTO) 0.01 K/uL (0.00-0.20); BASOPHILS % (AUTO) 0.1 % (0.0-2.0); EOSINOPHILS # (AUTO) 0.17 K/uL (0.00-0.70); EOSINOPHILS % (AUTO) 2.05 % (1.0-6.0); HEMOGLOBIN 13.3 g/dL (13.5-17.5); LYMPHOCYTES # (AUTO) 0.9 K/uL (1.0-4.8); LYMPHOCYTES % (AUTO) 11.2 % (22.0-44.0); MEAN CORPUSCULAR HEMOGLOBIN 24.9 pg (26.0-34.0); MEAN CORPUSCULAR HGB CONC 31.7 G/dL (31.0-37.0); MEAN CORPUSCULAR VOLUME 79 fL (80-100); MONOCYTES # (AUTO) 0.8 K/uL (0.1-1.0); MONOCYTES % (AUTO) 9.4 % (2.0-9.0); NEUTROPHILS # (AUTO) 6.3 K/uL (1.8-7.7); NEUTROPHILS % (AUTO) 77.3 % (40.0-70.0); PLATELET COUNT (AUTO) 207 K/uL (150-450); RED BLOOD CELL COUNT(AUTO) 5.34 MIL/uL (4.50-5.90); RED CELL DISTRIBUTION WIDTH 15.6 % (11.5-14.5); WHITE BLOOD COUNT (AUTO) 8.1 K/uL (4.5-11.0)
[2017-11-19 06:24] LABS: ALBUMIN 2.6 g/dL (3.4-5.0); BILIRUBIN,TOTAL 0.5 mg/dL (0.1-1.0); CALCIUM, TOTAL 8.5 mg/dL (8.8-10.5); CREATININE 1.83 mg/dL (0.60-1.30); MAGNESIUM 2.1 mg/dL (1.80-2.40); TOTAL PROTEIN, SERUM 6.7 g/dL (6.4-8.2)
[2017-11-19 08:29] VITALS: BP 171/108
[2017-11-19] MEDS: BUMETANIDE 0.25 MG/ML 4 ML VIAL IVP SCH (09:18)
[2017-11-19] MEDS: OMEGA-3/DHA/EPA/FISH OIL 1,000 MG CAPSULE PO SCH ×2 (09:19→16:56)
[2017-11-19] MEDS: LABETALOL HCL 200 MG TABLET PO SCH ×2 (09:19→16:56)
[2017-11-19] MEDS: APIXABAN 2.5 MG TABLET PO SCH (09:20)
[2017-11-19] MEDS: NIFEdipine 60 MG ER TABLET PO SCH (09:20)
[2017-11-19] MEDS: HydrALAZINE HCL 25 MG TABLET PO SCH ×3 (09:20→16:56)
[2017-11-19] MEDS: PANTOPRAZOLE SODIUM 40 MG DR TABLET PO SCH (09:21)
[2017-11-19] MEDS: ATORVASTATIN CALCIUM 10 MG TABLET PO SCH (09:21)
[2017-11-19] MEDS: DOCUSATE SODIUM 100 MG CAPSULE PO SCH (09:21)
[2017-11-19 10:43] VITALS: BP 173/101
[2017-11-19] MEDS ORDERED: CloNIDine HCL 0.1 MG TABLET PO SCH (10:45)
[2017-11-19 11:33] VITALS: BP 149/92
[2017-11-19 13:48] VITALS: BP 141/90
[2017-11-19 16:15] VITALS: BP 136/96
[2017-11-19] MEDS ORDERED: NIFE60TA81 PO (18:25)
[2017-11-19] MEDS ORDERED: LABE200T PO (18:25)
[2017-11-19] MEDS ORDERED: CLON-570 PO (18:27)
== END 2017-11-19 19:10 | disposition home or self-care (01) | DRG 469 ==
LOC: EMS 17:17 → ICU 21:02 → 5S 11-17 06:10
PROVIDERS: ADMIT Internal Medicine; ATTEND Internal Medicine
PROC: 3E0234Z Introduction of Serum, Toxoid and Vaccine into Muscle, Percutaneous Approach (ICD-10-PCS; principal; 2017-11-16)
DX: N17.9 Acute kidney failure, unspecified (principal); J96.01 Acute respiratory failure with hypoxia; I21.4 Non-ST elevation (NSTEMI) myocardial infarction; I50.43 Acute on chronic combined systolic (congestive) and diastolic (congestive) heart failure; E87.1 Hypo-osmolality and hyponatremia; D50.9 Iron deficiency anemia, unspecified; F15.10 Other stimulant abuse, uncomplicated; I48.91 Unspecified atrial fibrillation; I13.0 Hypertensive heart and chronic kidney disease with heart failure and stage 1 through stage 4 chronic kidney disease, or unspecified chronic kidney disease; J44.9 Chronic obstructive pulmonary disease, unspecified; I35.1 Nonrheumatic aortic (valve) insufficiency; N18.2 Chronic kidney disease, stage 2 (mild); I16.0 Hypertensive urgency; F17.210 Nicotine dependence, cigarettes, uncomplicated; Z82.49 Family history of ischemic heart disease and other diseases of the circulatory system; Z91.19 Patient's noncompliance with other medical treatment and regimen; Z23 Encounter for immunization; Z79.899 Other long term (current) drug therapy; Z71.51 Drug abuse counseling and surveillance of drug abuser
CPT/HCPCS: 80307; 82270; 82607; 82728; 82746; 82805; 83540; 83550; 83735; 84100; 84145; 87070; 87081; 87205; 90471; 93005; 93306; 94640; 94660; 96374; 96375; 96376; 99291; J0360; J2270; J2405; J3490

== ENCOUNTER 2017-11-25 06:25 | Inpatient (IN) | payer OTHER ==
[~2017-11-25] VITALS: Ht 167.6 cm; Wt 69.7 kg
[~2017-11-25 06:25] MED LIST changes: +CLON-570 PO; -LABE100 PO; +LABE200T PO; +NIFE60TA81 PO; -NIFE90TA38 PO
[2017-11-25 06:32] LABS: GLUCOSE,POINT OF CARE 89 MG/DL (70-110)
[2017-11-25] MEDS ORDERED: DILTIAZEM HCL 5 MG/ML 5 ML VIAL IVP ONE (06:45)
[2017-11-25] MEDS ORDERED: BUMETANIDE 0.25 MG/ML 4 ML VIAL IVP ONE (07:00)
[2017-11-25] MEDS ORDERED: FUROSEMIDE 40 MG/4 ML VIAL IVP ONE (07:00)
[2017-11-25] MEDS ORDERED: ONDANSETRON HCL 4 MG/2 ML VIAL IVP ONE (07:00)
[2017-11-25 07:01] LABS: BASOPHILS # (AUTO) 0.08 K/uL (0.00-0.20); EOSINOPHILS # (AUTO) 0.34 K/uL (0.00-0.70); EOSINOPHILS % (AUTO) 4.28 % (1.0-6.0); HEMATOCRIT 39.3 % (41-53); HEMOGLOBIN 12.3 g/dL (13.5-17.5); LYMPHOCYTES # (AUTO) 0.9 K/uL (1.0-4.8); LYMPHOCYTES % (AUTO) 11.5 % (22.0-44.0); MEAN CORPUSCULAR HEMOGLOBIN 24.6 pg (26.0-34.0); MEAN CORPUSCULAR HGB CONC 31.4 G/dL (31.0-37.0); MEAN CORPUSCULAR VOLUME 79 fL (80-100); MONOCYTES # (AUTO) 0.4 K/uL (0.1-1.0); MONOCYTES % (AUTO) 4.6 % (2.0-9.0); NEUTROPHILS # (AUTO) 6.3 K/uL (1.8-7.7); NEUTROPHILS % (AUTO) 78.6 % (40.0-70.0); PLATELET COUNT (AUTO) 419 K/uL (150-450); RED CELL DISTRIBUTION WIDTH 15.3 % (11.5-14.5)
[2017-11-25 07:11] LABS: CALCIUM, TOTAL 8.2 mg/dL (8.8-10.5); CREATININE 2.53 mg/dL (0.60-1.30); POTASSIUM 4.2 mmol/L (3.5-5.1)
[2017-11-25 07:35] LABS: BILIRUBIN,TOTAL 0.5 mg/dL (0.1-1.0); CKMB RELATIVE INDEX 1.3 % (0.0-4.0); CREATINE KINASE MB 5.2 ng/mL (0-5); TOTAL PROTEIN, SERUM 7.3 g/dL (6.4-8.2)
[2017-11-25] MEDS ORDERED: NIFEdipine 10 MG CAPSULE PO ONE (08:00)
[2017-11-25] MEDS ORDERED: HydrALAZINE HCL 20 MG/ML VIAL IVP ONE (08:00)
[2017-11-25 09:12] LABS: AMPHET/METH SCREEN,URINE POSITIVE (NEGATIVE); BARBITURATE SCREEN, URINE NEGATIVE (NEGATIVE); BENZODIAZEPINES SCREEN,URINE NEGATIVE (NEGATIVE); CANNABINOID SCREEN,URINE NEGATIVE (NEGATIVE); COCAINE SCREEN,URINE NEGATIVE (NEGATIVE); METHADONE SCREEN, URINE NEGATIVE (NEGATIVE); OPIATE SCREEN,URINE NEGATIVE (NEGATIVE)
[2017-11-25 09:13] LABS: PHENCYCLIDINE SCREEN,URINE NEGATIVE (NEGATIVE)
[2017-11-25 09:20] LABS: APPEARANCE,URINE CLEAR (CLEAR); BILIRUBIN,URINE NEGATIVE (NEGATIVE); GLUCOSE, URINE (UA) NEGATIVE (NEGATIVE); KETONES,URINE NEGATIVE (NEGATIVE); LEUKOCYTE ESTERASE ,URINE NEGATIVE (NEGATIVE); NITRATE,URINE NEGATIVE (NEGATIVE); OCCULT BLOOD,URINE NEGATIVE (NEGATIVE); PROTEIN,URINE SEE CONFIRM (NEGATIVE)
[2017-11-25 09:30] LABS: SULFOSALICYLIC ACID,URINE 3+ (Negative)
[2017-11-25 09:31] LABS: BACTERIA,URINE None Seen /HPF (None Seen); RBC,URINE None Seen /HPF (0-2); WBC,URINE 0-2 /HPF (0-5)
[2017-11-25 09:32] LABS: COARSE GRANULAR CASTS,URINE 0-2 /LPF (None Seen); HYALINE CASTS, URINE 0-2 /LPF (None Seen); SQUAMOUS EPITHELIAL CELL,UR Rare /LPF (None Seen)
[2017-11-25 10:28] LABS: ABG A-A DIFF O2 59.4 mmHg (10-20.0); ABG BASE EXCESS -2.3 mmol/L (-2.0-3.0); ABG CARBOXYHEMOGLOBIN 0.9 % (0.0-1.5); ABG HCO3 22.9 mmol/L (22.0-26.0); ABG METHEMOGLOBIN 0.1 % (0.0-1.5); ABG OXYGEN CONTENT 17.8 mL/dL (15.0-23.0); ABG OXYGEN SATURATION 98.4 % (95.0-98.0); ABG OXYHEMOGLOBIN 97.4 % (94.0-100.0); ABG PCO2 37 mmHg (35-45); ABG PH 7.398 (7.350-7.450); ABG TOTAL HEMOGLOBIN 12.9 G/dL (12.0-18.0); PO2, ARTERIAL BG 110.8 mmHg (92.0-100.0); SOURCE, BLOOD GAS ARTERIAL; TEMPERATURE, FAHRENHEIT, BG 98.1 FAHREN (96.0-98.6)
[2017-11-25 10:29] LABS: O2 DEVICE,BLOOD GAS BIPAP (ROOM AIR); SITE, BLOOD GAS RT RADIAL; VT, ABG 556 ml
[2017-11-25] MEDS ORDERED: ACETAMINOPHEN 325 MG TABLET PO PRN ×2 (10:45→12:00)
[2017-11-25] MEDS ORDERED: ONDANSETRON HCL 4 MG/2 ML VIAL IVP PRN ×2 (10:45→12:00)
[2017-11-25] MEDS ORDERED: 0.9% SODIUM CHLORIDE 10 ML SYRINGE IVP PRN (10:45)
[2017-11-25 12:00] VITALS: BP 173/115
[2017-11-25] MEDS ORDERED: MORPHINE SULFATE 2 MG/ML SYRINGE IVP PRN (12:00)
[2017-11-25] MEDS ORDERED: HydrALAZINE HCL 20 MG/ML VIAL IVP PRN ×2 (12:00→16:00)
[2017-11-25] MEDS ORDERED: ZOLPIDEM TARTRATE 5 MG TABLET PO PRN (12:00)
[2017-11-25] MEDS ORDERED: CloNIDine HCL 0.1 MG TABLET PO SCH (12:00)
[2017-11-25] MEDS ORDERED: MAGNESIUM HYDROXIDE SUSPENSION 30 ML UDCUP PO PRN (12:00)
[2017-11-25] MEDS ORDERED: BISACODYL 10 MG RECTAL RECTAL SUPPOSITORY PR PRN (12:00)
[2017-11-25] MEDS ORDERED: HYDROCODONE/ACETAMINOPHEN 5-325 MG TABLET PO PRN (12:00)
[2017-11-25] MEDS: HydrALAZINE HCL 50 MG TABLET PO SCH ×3 (12:43→21:34)
[2017-11-25] MEDS ORDERED: BUMETANIDE 0.25 MG/ML 10 ML VIAL IVP ONE (13:15)
[2017-11-25] MEDS ORDERED: NIFEdipine 60 MG ER TABLET PO ONE (13:15)
[2017-11-25] MEDS ORDERED: CloNIDine HCL 0.1 MG TABLET PO ONE (13:15)
[2017-11-25] MEDS: ATORVASTATIN CALCIUM 10 MG TABLET PO SCH (13:20)
[2017-11-25] MEDS ORDERED: LORazepam 2 MG/ML VIAL IVP PRN (13:30)
[2017-11-25] MEDS ORDERED: ALBUTEROL SULFATE 2.5 MG/0.5 ML NEB SOLUTION NEB PRN ×2 (14:00→21:45)
[2017-11-25] MEDS ORDERED: IPRATROPIUM BROMIDE 0.5 MG/2.5 ML NEB SOLUTION NEB PRN (14:00)
[2017-11-25] MEDS: NICARDipine 20 MG/DEXT,ISO-OSM 200 ML IV PRN ×4 (15:12→21:56)
[2017-11-25 16:00] VITALS: BP 185/102
[2017-11-25] MEDS: OMEGA-3/DHA/EPA/FISH OIL 1,000 MG CAPSULE PO SCH ×2 (16:00→22:40)
[2017-11-25] MEDS: LABETALOL HCL 200 MG TABLET PO SCH ×2 (16:00→22:40)
[2017-11-25 16:50] LABS: ABG A-A DIFF O2 86.9 mmHg (10-20.0); ABG BASE EXCESS 0.1 mmol/L (-2.0-3.0); ABG CARBOXYHEMOGLOBIN 1.4 % (0.0-1.5); ABG HCO3 24.2 mmol/L (22.0-26.0); ABG METHEMOGLOBIN 0.2 % (0.0-1.5); ABG OXYGEN SATURATION 89.7 % (95.0-98.0); ABG OXYHEMOGLOBIN 88.3 % (94.0-100.0); ABG PCO2 45 mmHg (35-45); ABG PH 7.369 (7.350-7.450); ABG TOTAL HEMOGLOBIN 13.7 G/dL (12.0-18.0); O2 DEVICE,BLOOD GAS CANNULA (ROOM AIR); PO2, ARTERIAL BG 59.5 mmHg (92.0-100.0); SITE, BLOOD GAS RT RADIAL; SOURCE, BLOOD GAS ARTERIAL; TEMPERATURE, FAHRENHEIT, BG 98.6 FAHREN (96.0-98.6)
[2017-11-25 20:00] VITALS: BP 174/80
[2017-11-25] MEDS ORDERED: BUMETANIDE 0.25 MG/ML 10 ML VIAL IVP SCH (21:00)
[2017-11-25] MEDS: DOCUSATE SODIUM 100 MG CAPSULE PO SCH (21:33)
[2017-11-25] MEDS: CloNIDine HCL 0.1 MG TABLET PO SCH (21:34)
[2017-11-25] MEDS: NIFEdipine 60 MG ER TABLET PO SCH (21:34)
[2017-11-25] MEDS: BUMETANIDE 0.25 MG/ML 10 ML VIAL IVP SCH (22:40)
[2017-11-25] MEDS: APIXABAN 2.5 MG TABLET PO SCH (22:41)
[2017-11-26] VITALS (7 sets, daily range): BP systolic 104–148; BP diastolic 58–91
[2017-11-26 05:16] LABS: BASOPHILS # (AUTO) 0.03 K/uL (0.00-0.20); BASOPHILS % (AUTO) 0.2 % (0.0-2.0); EOSINOPHILS # (AUTO) 0.05 K/uL (0.00-0.70); EOSINOPHILS % (AUTO) 0.42 % (1.0-6.0); HEMATOCRIT 36.9 % (41-53); HEMOGLOBIN 11.7 g/dL (13.5-17.5); LYMPHOCYTES # (AUTO) 0.6 K/uL (1.0-4.8); LYMPHOCYTES % (AUTO) 5.9 % (22.0-44.0); MEAN CORPUSCULAR HGB CONC 31.8 G/dL (31.0-37.0); MEAN CORPUSCULAR VOLUME 79 fL (80-100); MONOCYTES # (AUTO) 0.4 K/uL (0.1-1.0); NEUTROPHILS # (AUTO) 9.7 K/uL (1.8-7.7); PLATELET COUNT (AUTO) 416 K/uL (150-450); RED BLOOD CELL COUNT(AUTO) 4.68 MIL/uL (4.50-5.90)
[2017-11-26 05:18] LABS: NEUTROPHILS % (AUTO) 89.5 % (40.0-70.0)
[2017-11-26 06:12] LABS: ALBUMIN 2.7 g/dL (3.4-5.0); BILIRUBIN,TOTAL 1.4 mg/dL (0.1-1.0); CALCIUM, TOTAL 8.6 mg/dL (8.8-10.5); CREATININE 3.05 mg/dL (0.60-1.30); POTASSIUM 4.3 mmol/L (3.5-5.1); TOTAL PROTEIN, SERUM 6.7 g/dL (6.4-8.2)
[2017-11-26] MEDS: HydrALAZINE HCL 25 MG TABLET PO SCH ×4 (08:40→21:18)
[2017-11-26] MEDS: ATORVASTATIN CALCIUM 10 MG TABLET PO SCH (08:41)
[2017-11-26] MEDS: DOCUSATE SODIUM 100 MG CAPSULE PO SCH ×2 (08:41→20:26)
[2017-11-26] MEDS: OMEGA-3/DHA/EPA/FISH OIL 1,000 MG CAPSULE PO SCH ×3 (08:41→20:26)
[2017-11-26] MEDS: PANTOPRAZOLE SODIUM 40 MG DR TABLET PO SCH (08:41)
[2017-11-26] MEDS: APIXABAN 2.5 MG TABLET PO SCH ×2 (08:41→20:26)
[2017-11-26] MEDS: NIFEdipine 60 MG ER TABLET PO SCH ×2 (08:41→23:49)
[2017-11-26] MEDS: BUMETANIDE 0.25 MG/ML 10 ML VIAL IVP SCH (08:42)
[2017-11-26] MEDS: CloNIDine HCL 0.1 MG TABLET PO SCH (08:42)
[2017-11-26] MEDS: LABETALOL HCL 200 MG TABLET PO SCH ×3 (08:44→20:27)
[2017-11-26 12:06] LABS: ABG A-A DIFF O2 86.7 mmHg (10-20.0); ABG HCO3 23.7 mmol/L (22.0-26.0); ABG METHEMOGLOBIN 0.3 % (0.0-1.5); ABG OXYGEN CONTENT 15.2 mL/dL (15.0-23.0); ABG OXYGEN SATURATION 93.8 % (95.0-98.0); ABG OXYHEMOGLOBIN 91.6 % (94.0-100.0); ABG PCO2 38 mmHg (35-45); ABG PH 7.409 (7.350-7.450); ABG TOTAL HEMOGLOBIN 11.8 G/dL (12.0-18.0); PO2, ARTERIAL BG 67.9 mmHg (92.0-100.0); SOURCE, BLOOD GAS ARTERIAL; TEMPERATURE, FAHRENHEIT, BG 98.6 FAHREN (96.0-98.6)
[2017-11-26 12:08] LABS: SITE, BLOOD GAS RT RADIAL
[2017-11-26 21:21] LABS: CREATININE,URINE RANDOM 183.7 mg/dL (30.0-125.0)
[2017-11-26] MEDS: CloNIDine HCL 0.2 MG TABLET PO SCH (23:56)
[2017-11-27] VITALS (7 sets, daily range): BP systolic 138–166; BP diastolic 73–98
[2017-11-27 06:19] LABS: BASOPHILS % (AUTO) 0.7 % (0.0-2.0); EOSINOPHILS % (AUTO) 2.2 % (1.0-6.0); HEMATOCRIT 36.4 % (41-53); HEMOGLOBIN 11.8 g/dL (13.5-17.5); LYMPHOCYTES # (AUTO) 0.9 K/uL (1.0-4.8); LYMPHOCYTES % (AUTO) 12.5 % (22.0-44.0); MEAN CORPUSCULAR HEMOGLOBIN 25.4 pg (26.0-34.0); MEAN CORPUSCULAR HGB CONC 32.5 G/dL (31.0-37.0); MEAN CORPUSCULAR VOLUME 78 fL (80-100); MONOCYTES # (AUTO) 0.6 K/uL (0.1-1.0); MONOCYTES % (AUTO) 8.4 % (2.0-9.0); NEUTROPHILS # (AUTO) 5.8 K/uL (1.8-7.7); NEUTROPHILS % (AUTO) 76.2 % (40.0-70.0); PLATELET COUNT (AUTO) 427 K/uL (150-450); RED BLOOD CELL COUNT(AUTO) 4.66 MIL/uL (4.50-5.90); RED CELL DISTRIBUTION WIDTH 15.5 % (11.5-14.5)
[2017-11-27 06:41] LABS: CALCIUM, TOTAL 8.3 mg/dL (8.8-10.5); CREATININE 2.75 mg/dL (0.60-1.30)
[2017-11-27] MEDS: PANTOPRAZOLE SODIUM 40 MG DR TABLET PO SCH (09:04)
[2017-11-27] MEDS: APIXABAN 2.5 MG TABLET PO SCH ×2 (09:04→20:13)
[2017-11-27] MEDS: DOCUSATE SODIUM 100 MG CAPSULE PO SCH ×2 (09:04→20:13)
[2017-11-27] MEDS: OMEGA-3/DHA/EPA/FISH OIL 1,000 MG CAPSULE PO SCH ×3 (09:04→20:13)
[2017-11-27] MEDS: ATORVASTATIN CALCIUM 10 MG TABLET PO SCH (09:04)
[2017-11-27] MEDS: HydrALAZINE HCL 25 MG TABLET PO SCH ×4 (09:05→21:27)
[2017-11-27] MEDS: LABETALOL HCL 200 MG TABLET PO SCH ×3 (09:11→21:20)
[2017-11-27] MEDS: NIFEdipine 60 MG ER TABLET PO SCH ×2 (11:22→21:21)
[2017-11-27] MEDS: CloNIDine HCL 0.2 MG TABLET PO SCH ×2 (11:22→20:13)
[2017-11-27] MEDS: BUMETANIDE 1 MG TABLET PO SCH (20:13)
[2017-11-27] MEDS: GuaiFENesin [SUGAR-FREE] 200 MG/10 ML SOLUTION UDCUP PO PRN (20:19)
[2017-11-28 06:05] VITALS: BP 156/103
[2017-11-28 06:42] LABS: BASOPHILS % (AUTO) 0.8 % (0.0-2.0); EOSINOPHILS % (AUTO) 3.2 % (1.0-6.0); HEMATOCRIT 37.6 % (41-53); LYMPHOCYTES # (AUTO) 0.9 K/uL (1.0-4.8); LYMPHOCYTES % (AUTO) 13.1 % (22.0-44.0); MEAN CORPUSCULAR HEMOGLOBIN 25.2 pg (26.0-34.0); MEAN CORPUSCULAR VOLUME 79 fL (80-100); MONOCYTES # (AUTO) 0.8 K/uL (0.1-1.0); MONOCYTES % (AUTO) 11.4 % (2.0-9.0); NEUTROPHILS # (AUTO) 5.1 K/uL (1.8-7.7); NEUTROPHILS % (AUTO) 71.5 % (40.0-70.0); PLATELET COUNT (AUTO) 442 K/uL (150-450); RED BLOOD CELL COUNT(AUTO) 4.76 MIL/uL (4.50-5.90); RED CELL DISTRIBUTION WIDTH 15.6 % (11.5-14.5)
[2017-11-28 06:55] LABS: ALBUMIN 2.4 g/dL (3.4-5.0); BILIRUBIN,TOTAL 0.4 mg/dL (0.1-1.0); CALCIUM, TOTAL 8.3 mg/dL (8.8-10.5); CREATININE 1.86 mg/dL (0.60-1.30); MAGNESIUM 1.6 mg/dL (1.80-2.40); POTASSIUM 4.1 mmol/L (3.5-5.1); TOTAL PROTEIN, SERUM 6.2 g/dL (6.4-8.2)
[2017-11-28 07:48] VITALS: BP 166/106
[2017-11-28] MEDS: BUMETANIDE 1 MG TABLET PO SCH (09:22)
[2017-11-28] MEDS: LABETALOL HCL 200 MG TABLET PO SCH (09:22)
[2017-11-28] MEDS: GuaiFENesin [SUGAR-FREE] 200 MG/10 ML SOLUTION UDCUP PO PRN (09:22)
[2017-11-28] MEDS: APIXABAN 2.5 MG TABLET PO SCH (09:22)
[2017-11-28] MEDS: ATORVASTATIN CALCIUM 10 MG TABLET PO SCH (09:22)
[2017-11-28] MEDS: PANTOPRAZOLE SODIUM 40 MG DR TABLET PO SCH (09:22)
[2017-11-28] MEDS: DOCUSATE SODIUM 100 MG CAPSULE PO SCH (09:22)
[2017-11-28] MEDS: OMEGA-3/DHA/EPA/FISH OIL 1,000 MG CAPSULE PO SCH (09:22)
[2017-11-28] MEDS: HydrALAZINE HCL 25 MG TABLET PO SCH (09:22)
[2017-11-28] MEDS: NIFEdipine 60 MG ER TABLET PO SCH (10:31)
[2017-11-28] MEDS: CloNIDine HCL 0.2 MG TABLET PO SCH (10:31)
[2017-11-28 11:30] VITALS: BP 142/113
[2017-11-28 11:40] VITALS: BP 149/89
== END 2017-11-28 14:20 | disposition home or self-care (01) | DRG 469 ==
LOC: EMS 06:26 → ICU 10:04 → 5N 11-26 15:20
PROVIDERS: ADMIT Hospitalist; ATTEND Hospitalist
PROC: 5A09457 Assistance with Respiratory Ventilation, 24-96 Consecutive Hours, Continuous Positive Airway Pressure (ICD-10-PCS; principal; 2017-11-25)
DX: N17.9 Acute kidney failure, unspecified (principal); J96.00 Acute respiratory failure, unspecified whether with hypoxia or hypercapnia; G93.41 Metabolic encephalopathy; I50.33 Acute on chronic diastolic (congestive) heart failure; J96.20 Acute and chronic respiratory failure, unspecified whether with hypoxia or hypercapnia; N18.4 Chronic kidney disease, stage 4 (severe); I48.92 Unspecified atrial flutter; I42.0 Dilated cardiomyopathy; Z99.81 Dependence on supplemental oxygen; I16.0 Hypertensive urgency; I13.0 Hypertensive heart and chronic kidney disease with heart failure and stage 1 through stage 4 chronic kidney disease, or unspecified chronic kidney disease; F15.10 Other stimulant abuse, uncomplicated; I48.2 Chronic atrial fibrillation; F17.210 Nicotine dependence, cigarettes, uncomplicated; I35.1 Nonrheumatic aortic (valve) insufficiency; R74.8 Abnormal levels of other serum enzymes; I16.1 Hypertensive emergency; N05.9 Unspecified nephritic syndrome with unspecified morphologic changes; Z79.899 Other long term (current) drug therapy; Z79.01 Long term (current) use of anticoagulants; Z91.19 Patient's noncompliance with other medical treatment and regimen
CPT/HCPCS: 76770; 82570; 82805; 82962; 83735; 84156; 84300; 84540; 85379; 87040; 87081; 93005; 94660; 96374; 96375; 99291; J0360; J2060; J3490

== ENCOUNTER 2018-03-13 03:09 | Inpatient (IN) | payer OTHER ==
[~2018-03-13] VITALS: Ht 165.1 cm; Wt 75.1 kg
[2018-03-13] MEDS: LABETALOL HCL 5 MG/ML 20 ML VIAL IVP ONE ×2 (03:21→03:28)
[2018-03-13] MEDS ORDERED: NITROGLYCERIN 0.4 MG SUBLINGUAL TABLET #25 SL ONE (03:30)
[2018-03-13] MEDS ORDERED: LABETALOL HCL 5 MG/ML 20 ML VIAL IVP ONE ×2 (03:30→05:00)
[2018-03-13] MEDS ORDERED: FUROSEMIDE 40 MG/4 ML VIAL IVP ONE ×2 (03:30→04:15)
[2018-03-13] MEDS ORDERED: ALBUTEROL SULFATE 2.5 MG/0.5 ML NEB SOLUTION NEB ONE (03:30)
[2018-03-13 03:34] LABS: BASOPHILS % (AUTO) 1.3 % (0.0-2.0); EOSINOPHILS % (AUTO) 5.3 % (1.0-6.0); HEMATOCRIT 44.8 % (41-53); HEMOGLOBIN 14.2 g/dL (13.5-17.5); LYMPHOCYTES # (AUTO) 1.3 K/uL (1.0-4.8); LYMPHOCYTES % (AUTO) 22.7 % (22.0-44.0); MEAN CORPUSCULAR HEMOGLOBIN 24.5 pg (26.0-34.0); MEAN CORPUSCULAR HGB CONC 31.7 G/dL (31.0-37.0); MEAN CORPUSCULAR VOLUME 77 fL (80-100); MONOCYTES # (AUTO) 0.5 K/uL (0.1-1.0); MONOCYTES % (AUTO) 7.8 % (2.0-9.0); NEUTROPHILS # (AUTO) 3.7 K/uL (1.8-7.7); NEUTROPHILS % (AUTO) 62.9 % (40.0-70.0); PLATELET COUNT (AUTO) 257 K/uL (150-450); RED CELL DISTRIBUTION WIDTH 16.9 % (11.5-14.5)
[2018-03-13] MEDS ORDERED: NIFE90TA45 PO (03:41)
[2018-03-13] MEDS ORDERED: LABE100 PO (03:41)
[2018-03-13] MEDS ORDERED: CLON0.2T PO (03:41)
[2018-03-13] MEDS ORDERED: HYDR-2924 PO (03:41)
[2018-03-13 03:43] LABS: CALCIUM, TOTAL 8.7 mg/dL (8.8-10.5); CREATININE 2.29 mg/dL (0.60-1.30); POTASSIUM 3.9 mmol/L (3.5-5.1)
[2018-03-13] MEDS ORDERED: 0.9% SODIUM CHLORIDE 5 ML NEB SOLUTION NEB ONE ×2 (03:46→03:54)
[2018-03-13 03:48] LABS: ALBUMIN 3.5 g/dL (3.4-5.0); BILIRUBIN,TOTAL 0.5 mg/dL (0.1-1.0); TOTAL PROTEIN, SERUM 7.5 g/dL (6.4-8.2)
[2018-03-13] MEDS ORDERED: HydrALAZINE HCL 20 MG/ML VIAL IVP ONE (04:00)
[2018-03-13] MEDS ORDERED: NITROGLYCERIN 2% (1 GM=INCH) PACKET TP ONE (04:00)
[2018-03-13 04:40] LABS: ABG A-A DIFF O2 133.3 mmHg (10-20.0); ABG BASE EXCESS -5.6 mmol/L (-2.0-3.0); ABG CARBOXYHEMOGLOBIN 1.3 % (0.0-1.5); ABG HCO3 20.9 mmol/L (22.0-26.0); ABG METHEMOGLOBIN 0.2 % (0.0-1.5); ABG OXYGEN CONTENT 17.5 mL/dL (15.0-23.0); ABG OXYHEMOGLOBIN 89.6 % (94.0-100.0); ABG PCO2 29 mmHg (35-45); ABG PH 7.428 (7.350-7.450); ABG TOTAL HEMOGLOBIN 13.9 G/dL (12.0-18.0); PO2, ARTERIAL BG 60.8 mmHg (92.0-100.0); SOURCE, BLOOD GAS ARTERIAL; TEMPERATURE, FAHRENHEIT, BG 98.6 FAHREN (96.0-98.6)
[2018-03-13 04:41] LABS: O2 DEVICE,BLOOD GAS CANNULA (ROOM AIR); SITE, BLOOD GAS LFT RADIAL
[2018-03-13] MEDS ORDERED: CloNIDine HCL 0.1 MG TABLET PO ONE (05:00)
[2018-03-13 05:13] LABS: APPEARANCE,URINE CLEAR (CLEAR); BILIRUBIN,URINE NEGATIVE (NEGATIVE); GLUCOSE, URINE (UA) NEGATIVE (NEGATIVE); KETONES,URINE NEGATIVE (NEGATIVE); LEUKOCYTE ESTERASE ,URINE NEGATIVE (NEGATIVE); NITRATE,URINE NEGATIVE (NEGATIVE); OCCULT BLOOD,URINE NEGATIVE (NEGATIVE); PH,URINE 6.5 (5.0-8.0); PROTEIN,URINE SEE CONFIRM (NEGATIVE); UROBILINOGEN,URINE 0.2 mg/dL (<=1.0)
[2018-03-13 05:21] LABS: SULFOSALICYLIC ACID,URINE 3+ (Negative)
[2018-03-13 05:27] LABS: BACTERIA,URINE Few /HPF (None Seen); RBC,URINE 0-2 /HPF (0-2); WBC,URINE 0-2 /HPF (0-5)
[2018-03-13] MEDS ORDERED: ACETAMINOPHEN 325 MG TABLET PO PRN ×2 (05:30→08:00)
[2018-03-13] MEDS ORDERED: ONDANSETRON HCL 4 MG/2 ML VIAL IVP PRN (05:30)
[2018-03-13] MEDS ORDERED: 0.9% SODIUM CHLORIDE 10 ML SYRINGE IVP PRN (05:30)
[2018-03-13] MEDS ORDERED: OXYGEN THERAPY IH SCH (08:00)
[2018-03-13] MEDS ORDERED: MAGNESIUM HYDROXIDE SUSPENSION 30 ML UDCUP PO PRN (08:00)
[2018-03-13 08:01] LABS: AMPHET/METH SCREEN,URINE NEGATIVE (NEGATIVE); BARBITURATE SCREEN, URINE NEGATIVE (NEGATIVE); BENZODIAZEPINES SCREEN,URINE NEGATIVE (NEGATIVE); CANNABINOID SCREEN,URINE NEGATIVE (NEGATIVE); COCAINE SCREEN,URINE NEGATIVE (NEGATIVE); METHADONE SCREEN, URINE NEGATIVE (NEGATIVE); OPIATE SCREEN,URINE NEGATIVE (NEGATIVE)
[2018-03-13 08:02] LABS: PHENCYCLIDINE SCREEN,URINE NEGATIVE (NEGATIVE)
[2018-03-13] MEDS: CloNIDine HCL 0.1 MG TABLET PO SCH ×2 (08:18→20:29)
[2018-03-13] MEDS: OMEGA-3/DHA/EPA/FISH OIL 1,000 MG CAPSULE PO SCH ×3 (08:19→20:34)
[2018-03-13] MEDS: DOCUSATE SODIUM 100 MG CAPSULE PO SCH ×2 (08:19→20:29)
[2018-03-13] MEDS: HydrALAZINE HCL 25 MG TABLET PO SCH ×4 (08:19→20:30)
[2018-03-13] MEDS: LABETALOL HCL 200 MG TABLET PO SCH ×3 (08:20→20:34)
[2018-03-13] MEDS: ATORVASTATIN CALCIUM 10 MG TABLET PO SCH (08:20)
[2018-03-13] MEDS: APIXABAN 2.5 MG TABLET PO SCH ×2 (08:20→20:29)
[2018-03-13] MEDS ORDERED: BUMETANIDE 1 MG TABLET PO SCH (09:00)
[2018-03-13] MEDS ORDERED: ASPIRIN 81 MG CHEWABLE TABLET PO SCH (09:00)
[2018-03-13] MEDS ORDERED: APIXABAN 2.5 MG TABLET PO SCH (09:00)
[2018-03-13 15:52] VITALS: BP 169/94
[2018-03-13 19:47] VITALS: BP 158/91
[2018-03-13 23:57] VITALS: BP 157/102
[2018-03-14 04:30] VITALS: BP 188/102
[2018-03-14] MEDS: CloNIDine HCL 0.1 MG TABLET PO SCH ×2 (04:32→20:17)
[2018-03-14 06:37] LABS: BASOPHILS % (AUTO) 0.8 % (0.0-2.0); EOSINOPHILS % (AUTO) 3.2 % (1.0-6.0); HEMATOCRIT 41.9 % (41-53); HEMOGLOBIN 13.4 g/dL (13.5-17.5); LYMPHOCYTES # (AUTO) 1.2 K/uL (1.0-4.8); LYMPHOCYTES % (AUTO) 18.9 % (22.0-44.0); MEAN CORPUSCULAR HEMOGLOBIN 24.5 pg (26.0-34.0); MEAN CORPUSCULAR VOLUME 77 fL (80-100); MONOCYTES # (AUTO) 0.8 K/uL (0.1-1.0); MONOCYTES % (AUTO) 13.1 % (2.0-9.0); PLATELET COUNT (AUTO) 233 K/uL (150-450); RED BLOOD CELL COUNT(AUTO) 5.47 MIL/uL (4.50-5.90); RED CELL DISTRIBUTION WIDTH 17.1 % (11.5-14.5)
[2018-03-14 06:42] VITALS: BP 182/99
[2018-03-14 06:52] LABS: CALCIUM, TOTAL 8.4 mg/dL (8.8-10.5); CREATININE 2.17 mg/dL (0.60-1.30); MAGNESIUM 1.9 mg/dL (1.80-2.40); PHOSPHORUS 3.9 mg/dL (2.5-4.9); POTASSIUM 3.5 mmol/L (3.5-5.1)
[2018-03-14] MEDS: APIXABAN 2.5 MG TABLET PO SCH ×2 (08:01→20:18)
[2018-03-14] MEDS: DOCUSATE SODIUM 100 MG CAPSULE PO SCH ×2 (08:01→20:17)
[2018-03-14] MEDS: ATORVASTATIN CALCIUM 10 MG TABLET PO SCH (08:03)
[2018-03-14] MEDS: OMEGA-3/DHA/EPA/FISH OIL 1,000 MG CAPSULE PO SCH ×3 (08:03→20:18)
[2018-03-14 08:05] VITALS: BP 184/128
[2018-03-14] MEDS: LABETALOL HCL 200 MG TABLET PO SCH ×3 (08:05→20:18)
[2018-03-14] MEDS: BUMETANIDE 1 MG TABLET PO SCH ×2 (08:52→20:17)
[2018-03-14] MEDS: HydrALAZINE HCL 25 MG TABLET PO SCH ×4 (08:54→20:17)
[2018-03-14 11:10] VITALS: BP 176/98
[2018-03-14] MEDS ORDERED: LISINOPRIL 10 MG TABLET PO SCH (12:45)
[2018-03-14] MEDS: AmLODIPine BESYLATE 10 MG TABLET PO SCH (13:01)
[2018-03-14] MEDS: BENAZEPRIL HCL 20 MG TABLET PO SCH ×2 (15:08→20:18)
[2018-03-14 15:20] VITALS: BP 160/96
[2018-03-14 19:15] VITALS: BP 135/80
[2018-03-15 00:24] VITALS: BP 141/89
[2018-03-15 04:22] VITALS: BP 146/86
[2018-03-15 06:54] LABS: CALCIUM, TOTAL 8.7 mg/dL (8.8-10.5); CREATININE 2.21 mg/dL (0.60-1.30)
[2018-03-15 07:22] VITALS: BP 143/90
[2018-03-15] MEDS: HydrALAZINE HCL 25 MG TABLET PO SCH ×4 (08:42→20:10)
[2018-03-15] MEDS: BENAZEPRIL HCL 20 MG TABLET PO SCH ×2 (08:43→20:10)
[2018-03-15] MEDS: AmLODIPine BESYLATE 10 MG TABLET PO SCH (08:43)
[2018-03-15] MEDS: CloNIDine HCL 0.1 MG TABLET PO SCH ×2 (08:43→20:10)
[2018-03-15] MEDS: APIXABAN 2.5 MG TABLET PO SCH ×2 (08:44→20:10)
[2018-03-15] MEDS: DOCUSATE SODIUM 100 MG CAPSULE PO SCH ×2 (08:44→20:10)
[2018-03-15] MEDS: BUMETANIDE 1 MG TABLET PO SCH (08:44)
[2018-03-15] MEDS: OMEGA-3/DHA/EPA/FISH OIL 1,000 MG CAPSULE PO SCH ×3 (08:45→20:10)
[2018-03-15] MEDS: LABETALOL HCL 200 MG TABLET PO SCH ×3 (08:45→20:10)
[2018-03-15] MEDS: ATORVASTATIN CALCIUM 10 MG TABLET PO SCH (08:45)
[2018-03-15 11:57] VITALS: BP 138/68
[2018-03-15 15:43] VITALS: BP 142/81
[2018-03-15 19:40] VITALS: BP 133/87
[2018-03-16 00:14] VITALS: BP 138/81
[2018-03-16 04:59] VITALS: BP 134/76
[2018-03-16 06:14] LABS: CALCIUM, TOTAL 8.5 mg/dL (8.8-10.5); CREATININE 2.22 mg/dL (0.60-1.30); POTASSIUM 4.1 mmol/L (3.5-5.1)
[2018-03-16 08:26] VITALS: BP 138/86
[2018-03-16] MEDS ORDERED: BUMETANIDE 1 MG TABLET PO SCH (09:00)
[2018-03-16] MEDS: OMEGA-3/DHA/EPA/FISH OIL 1,000 MG CAPSULE PO SCH (09:36)
[2018-03-16] MEDS: HydrALAZINE HCL 25 MG TABLET PO SCH ×2 (09:36→13:58)
[2018-03-16] MEDS: ATORVASTATIN CALCIUM 10 MG TABLET PO SCH (09:37)
[2018-03-16] MEDS: CloNIDine HCL 0.1 MG TABLET PO SCH (09:37)
[2018-03-16] MEDS: DOCUSATE SODIUM 100 MG CAPSULE PO SCH (09:37)
[2018-03-16] MEDS: LABETALOL HCL 200 MG TABLET PO SCH (09:37)
[2018-03-16] MEDS: BENAZEPRIL HCL 20 MG TABLET PO SCH (09:37)
[2018-03-16] MEDS: AmLODIPine BESYLATE 10 MG TABLET PO SCH (09:37)
[2018-03-16] MEDS: APIXABAN 2.5 MG TABLET PO SCH (09:37)
[2018-03-16 11:45] VITALS: BP 126/73
[2018-03-16 15:43] VITALS: BP 137/86
[2018-03-16] MEDS ORDERED: AMLO-512 PO (16:12)
[2018-03-16] MEDS ORDERED: BENA20 PO (16:13)
[2018-03-16] MEDS ORDERED: BUME1TAB17 PO (16:15)
[2018-03-18] MEDS ORDERED: BUMETANIDE 1 MG TABLET PO SCH (09:00)
== END 2018-03-16 16:50 | disposition home or self-care (01) | DRG 469 ==
LOC: EMS 03:09 → ICU 05:34 → 5N 15:00
PROVIDERS: ADMIT Internal Medicine; ATTEND Internal Medicine
DX: N17.9 Acute kidney failure, unspecified (principal); J96.20 Acute and chronic respiratory failure, unspecified whether with hypoxia or hypercapnia; G92 Toxic encephalopathy; I50.21 Acute systolic (congestive) heart failure; I13.0 Hypertensive heart and chronic kidney disease with heart failure and stage 1 through stage 4 chronic kidney disease, or unspecified chronic kidney disease; N18.3 Chronic kidney disease, stage 3 (moderate); F15.90 Other stimulant use, unspecified, uncomplicated; I42.9 Cardiomyopathy, unspecified; E87.3 Alkalosis; E78.5 Hyperlipidemia, unspecified; D63.8 Anemia in other chronic diseases classified elsewhere; I16.1 Hypertensive emergency; I25.10 Atherosclerotic heart disease of native coronary artery without angina pectoris; I48.2 Chronic atrial fibrillation; F19.10 Other psychoactive substance abuse, uncomplicated; I35.1 Nonrheumatic aortic (valve) insufficiency; F17.210 Nicotine dependence, cigarettes, uncomplicated; Z79.899 Other long term (current) drug therapy; Z91.14 Patient's other noncompliance with medication regimen; Z91.19 Patient's noncompliance with other medical treatment and regimen; Z71.6 Tobacco abuse counseling
CPT/HCPCS: 80307; 82805; 83605; 83735; 84100; 87040; 87081; 93005; 94640; 94660; J0360; J1940; J3490

== ENCOUNTER 2019-06-26 23:01 | Emergency (ER) | payer MEDICARE, OTHER ==
[~2019-06-26] VITALS: Ht 170.2 cm; Wt 72.0 kg
[~2019-06-26 23:01] MED LIST changes: +AMIODARONE HCL 50 MG/ML 3 ML VIAL IVP ONE; +AMLO10TA7 PO; -APIX2.5T PO; +APIX5TAB PO; -ATOR10TA84 PO; -BUME1TAB17 PO; +CALCIUM CHLORIDE 100 MG/ML 10 ML SYRINGE IVP ONE; -CLON-570 PO; +CLON.2 PO; +D5W IV ONE; +DEXTROSE 5%-WATER 500 ML BAG IV ONE; +DOPAMINE HCL IV ONE; +DSS100 PO; +EPINEPHrine 1:10,000 [1 MG/10 ML] SYRINGE IVP ONE; +FURO40 PO; -LABE200T PO; +LABE200T6 PO; -NIFE60TA81 PO; +NIFE90TA45 PO; -OMEG-135 PO; +POTA20PA41 PO; +PRAV20TA4 PO; +SACU1TAB7 PO; +SODIUM BICARBONATE [ADULT] 8.4% 50 MEQ/50 ML SYRINGE IVP ONE; +VITAD1000 PO
[2019-06-26] MEDS ORDERED: EPINEPHrine 1:10,000 [1 MG/10 ML] SYRINGE ONE (23:16)
[2019-06-26] MEDS ORDERED: NOREPINEPHRINE 4 MG/D5%-WATER 250 ML IV ONE (23:23)
[2019-06-26] MEDS ORDERED: FentaNYL CITRATE PF 500 MCG in DEXTROSE 5%-WATER 90 ML IV PRN (23:30)
[2019-06-26] MEDS ORDERED: EPINEPHrine 2 MG in DEXTROSE 5%-WATER 248 ML IV PRN (23:30)
[2019-06-26 23:38] LABS: BASOPHILS % (AUTO) 1.1 % (0.0-2.0); EOSINOPHILS % (AUTO) 2.2 % (1.0-6.0); HEMATOCRIT 41.3 % (41-53); HEMOGLOBIN 11.5 g/dL (13.5-17.5); LYMPHOCYTES # (AUTO) 4.5 K/uL (1.0-4.8); LYMPHOCYTES % (AUTO) 42.3 % (22.0-44.0); MEAN CORPUSCULAR HEMOGLOBIN 24.3 pg (26.0-34.0); MEAN CORPUSCULAR HGB CONC 27.9 G/dL (31.0-37.0); MEAN CORPUSCULAR VOLUME 87 fL (80-100); MONOCYTES # (AUTO) 0.5 K/uL (0.1-1.0); MONOCYTES % (AUTO) 5.1 % (2.0-9.0); NEUTROPHILS # (AUTO) 5.2 K/uL (1.8-7.7); NEUTROPHILS % (AUTO) 49.3 % (40.0-70.0); PLATELET COUNT (AUTO) 317 K/uL (150-450); RED BLOOD CELL COUNT(AUTO) 4.76 MIL/uL (4.50-5.90); RED CELL DISTRIBUTION WIDTH 19.1 % (11.5-14.5)
[2019-06-26 23:44] LABS: CALCIUM, TOTAL 9.4 mg/dL (8.8-10.5); CREATININE 3.5 mg/dL (0.60-1.30); POTASSIUM 5.1 mmol/L (3.5-5.1)
[2019-06-26 23:50] LABS: BILIRUBIN,TOTAL 0.6 mg/dL (0.1-1.0); TOTAL PROTEIN, SERUM 7.9 g/dL (6.4-8.2)
[2019-06-26 23:52] LABS: APPEARANCE,URINE CLOUDY (CLEAR); BILIRUBIN,URINE NEGATIVE (NEGATIVE); GLUCOSE, URINE (UA) NEGATIVE (NEGATIVE); KETONES,URINE NEGATIVE (NEGATIVE); LEUKOCYTE ESTERASE ,URINE NEGATIVE (NEGATIVE); NITRATE,URINE NEGATIVE (NEGATIVE); OCCULT BLOOD,URINE TRACE (NEGATIVE); PROTEIN,URINE SEE CONFIRM (NEGATIVE)
[2019-06-27 00:13] LABS: SULFOSALICYLIC ACID,URINE 4+ (Negative)
[2019-06-27 00:15] LABS: BACTERIA,URINE Few /HPF (None Seen); COARSE GRANULAR CASTS,URINE 0-2 /LPF (None Seen); SQUAMOUS EPITHELIAL CELL,UR Few /LPF (None Seen)
[2019-06-27 00:16] LABS: RBC,URINE 0-2 /HPF (0-2)
[2019-06-27 00:17] LABS: AMORPHOUS SEDIMENT,UR Few /LPF (None Seen)
[2019-06-27 00:21] LABS: INR 2.3 (0.9-1.1); PROTHROMBIN TIME 23.2 SEC (9.4-11.6)
[2019-06-27 02:18] LABS: AMPHET/METH SCREEN,URINE POSITIVE (NEGATIVE); BARBITURATE SCREEN, URINE NEGATIVE (NEGATIVE); BENZODIAZEPINES SCREEN,URINE NEGATIVE (NEGATIVE); CANNABINOID SCREEN,URINE NEGATIVE (NEGATIVE); COCAINE SCREEN,URINE NEGATIVE (NEGATIVE); METHADONE SCREEN, URINE NEGATIVE (NEGATIVE); OPIATE SCREEN,URINE NEGATIVE (NEGATIVE)
[2019-06-27 02:21] LABS: PHENCYCLIDINE SCREEN,URINE NEGATIVE (NEGATIVE)
[2019-06-27 04:49] VITALS: BP 92/62
== END 2019-06-27 05:36 | disposition expired ==
LOC: EMS 23:03
DX: I46.9 Cardiac arrest, cause unspecified (principal); I11.0 Hypertensive heart disease with heart failure; I50.9 Heart failure, unspecified; I48.91 Unspecified atrial fibrillation; F17.210 Nicotine dependence, cigarettes, uncomplicated; F15.90 Other stimulant use, unspecified, uncomplicated; F19.10 Other psychoactive substance abuse, uncomplicated; Z79.899 Other long term (current) drug therapy
CPT/HCPCS: 31500; 36415; 36556; 71045; 80053; 80307; 81001; 82550; 82962; 83880; 84484; 85025; 85610; 85730; 92950; 93005; 99291; 99292; J0171 ×2; J0282; J1265; J3010; J3490 ×3; J7060 ×3; 94002